=== PATIENT | male | born 1940 | race Caucasian/White ===

== ENCOUNTER 2016-12-27 20:23 | Inpatient (IN) ==
[2016-12-27] MEDS ORDERED: SALINE FLUSH 10ml SYRINGE IVF PRN (20:46)
--- OUTSIDE RECORDS SUMMARY | 2016-12-27 20:46 | External Medical Summary | Referral Summary ---
:1940 Author Organization [facility] Address [address] [place] [address] Care Team Providers Name Role Phone Arian Garcias Primary Care Physician Encounter VC Date(s): 01/26/15 - 01/26/15 [facility] [address] [place] [address] - us Discharge Diagnosis: Allergic rhinitis Discharge Diagnosis: Nasal septal deviation Discharge Diagnosis: Nocturnal hypoxemia Discharge Diagnosis: Bronchiectasis Discharge Disposition: 01-Home or Self Care Attending Physician: Dakota Meyer MD Vital Signs Most recent to oldest [Reference Range]: 1 Blood Pressure [90-140/60-90 mmHg] 132/74 mmHg (01/26/15 11:30 AM) Problem List Condition Effective Dates Status Health Status Informant Actinic keratosis(Confirmed) Active Allergy(Confirmed) Active Anemia (disorder)(Confirmed) Active Asthma without status asthmaticus Active (disorder)(Confirmed) Bronchiectasis(Confirmed) Active Cataract (disorder)(Confirmed) Active Community acquired pneumonia Active w/exacerb of COPD(Confirmed) Generalized osteoarthritis Active (disorder)(Confirmed) Depression(Confirmed) Active Diastolic dysfunction(Confirmed) Resolved Pedal edema(Confirmed) Active GI bleeding(Confirmed) Active GE reflux(Confirmed) Resolved Nocturnal hypoxemia(Confirmed) Active Hepatitis(Confirmed) Active Metabolic syndrome(Confirmed) Active Osteoarthritis(Confirmed) Active Overweight (finding)(Confirmed) Active Prostate cancer(Confirmed) Resolved Sleep apnea(Confirmed) Active Chicken pox(Confirmed) Active Allergies, Adverse Reactions, Alerts Substance Reaction Severity Status iodine Anaphylaxis Active nitrofurantoin dyspnea Active Medications Advair Diskus 250 mcg-50 mcg inhalation powder 1 puffs, Inhalation, BID, # 60 Each, 5 Refill(s), Pharmacy: [facility] [address] Start Date: 05/10/14 Status: Orderedalbuterol CFC free 90 mcg/inh inhalation aerosol 2 puffs, Inhalation, QID, 0 Refill(s) Start Date: 09/28/13 Status: OrderedAtrovent 42 mcg/inh nasal spray 2 sprays, Nasal, TID, # 2 Each, 12 Refill(s), Pharmacy: [facility] [address] Start Date: 02/24/14 Status: Orderedazithromycin 250 mg oral tablet See Instructions, TAKE ONE TABLET BY MOUTH ONCE DAILY, # 30 tabs, eRx: [facility] [address], TAKE ONE TABLET BY MOUTH ONCE DAILY Start Date: 01/15/15 Status: OrderedDuoNeb 0.5 mg-2.5 mg/3 mL inhalation solution 3 mL, Inhalation, QID, DX 519.8/494.0, # 360 mL, 2 Refill(s), Pharmacy: [facility] [address] Start Date: 12/07/13 Status: OrderedFlonase 50 mcg/inh nasal spray 1 sprays, Nasal, As Indicated, 0 Refill(s) Start Date: 09/28/13 Status: Orderedfurosemide 20 mg oral tablet See Instructions, TAKE ONE TABLET BY MOUTH MON.,WED. AND FRI., # 90 tabs, eRx: [facility] [address], TAKE ONE TABLET BY MOUTH MON.,THU. AND FRI. Start Date: 03/20/14 Status: OrderedHome Oxygen (DME) DME Item 3 LPM at bedtime (susan), See Instructions, # 1 Each, 0 Refill(s), Supply Start Date: 09/28/13 Status: OrderedLexapro 10 mg oral tablet 1 tabs, Oral, Daily, 0 Refill(s) Start Date: 09/28/13 Status: Orderedmagnesium oxide 250 mg oral tablet 1 tabs, Oral, Daily, 0 Refill(s) Start Date: 09/28/13 Status: OrderedMucinex 600 mg, Oral, q12hr, 0 Refill(s) Start Date: 09/28/13 Status: Orderedofloxacin 0.3% otic solution 5 drops, Ear-Both, BID, # 5 mL, 0 Refill(s) Start Date: 02/24/14 Status: Orderedomeprazole 20 mg oral delayed release capsule See Instructions, TAKE ONE CAPSULE BY MOUTH ONCE DAILY, # 90 caps, 2 Refill(s), eRx: [facility], TAKE ONE CAPSULE BY MOUTH ONCE DAILY Start Date: 11/08/14 Status: Orderedpotassium chloride 99 mg oral tablet 1 tabs, Oral, Daily, # 100 tabs, 0 Refill(s) Start Date: 09/28/13 Status: OrderedTylenol Extra Strength 500 mg, Oral, q6hr, 2 tabs once a day, 0 Refill(s) Start Date: 10/10/13 Status: OrderedVitamin D3 400 intl units oral tablet 1 tabs, Oral, Daily, 0 Refill(s) Start Date: 09/28/13 Status: Ordered Results No data available for this section Immunizations Vaccine Date Refusal Reason influenza virus vaccine, inactivated 03/07/15 influenza virus vaccine, inactivated 02/24/14 influenza virus vaccine, live 01/06/13 pneumococcal 23-polyvalent vaccine 03/07/15 tetanus-diphth toxoids (Td) adult/adol 10/19/08 Procedures Procedure Date Related Diagnosis Body Site Circumcision Colonoscopy Hernia repair Procedure/cardiac cath normal Procedure/lymph node Surgery/prostate Transfusions Social History Social History Type Response Smoking Status Former smoker; Type: Cigarettes; Tobacco use per day: Less than Pack; Number of years: 2 Assessment and Plan Extracted from: Title: Allergy Office Visit Note Author: Dakota Meyer MD Date: 01/26/15 Assessment/Plan 1.Allergic rhinitis Ordered: Office Visit Level 4 Est 89921 Return to Clinic 2.Bronchiectasis Controlled with significantly improved pulmonary function Ordered: azithromycin, See Instructions, Take one daily for bronchiectasis (prophylaxis ), # 30 tabs, 2 Refill(s), Pharmacy: [facility], Take one daily for bronchiectasis (prophylaxis) fluticasone-salmeterol, 1 puffs, Inhalation, BID, # 60 Each, 12 Refill(s), Pharmacy: [facility] Office Visit Level 4 Est 87626 Return to Clinic 3.Nocturnal hypoxemia Ordered: Office Visit Level 4 Est 97153 Return to Clinic 4.Nasal septal deviation Mild comes to the left Ordered: Office Visit Level 4 Est 54488 Return to Clinic Recommendations: Continue current medications(Advair discus, rescue inhalersand nasal sprays). Obtain annual influenza vaccinations. Continue prophylactic antibioticsand nocturnal oxygen supplementation; however theseshould be reassessed once he gets established with a new pulmonary medicine specialist(Dr. Arielle Rae followed him previously). He is travelling to [place] to visit his daughter and is forced to go without oxygen for 2 weeks because the [employer] was prohibitedfrom providingoxygen tanks or concen tratorsfor air travelon less than 3 weeks notice. It may be a good idea to reassess his need fornocturnal oxygen(if he does well)after this trip. Return to the allergy department in one year, sooner ifnecessary.
--- OUTSIDE RECORDS SUMMARY | 2016-12-27 20:46 | External Medical Summary | Referral Summary ---
:1940 Author Organization [facility] Address [address] [place] [address] Care Team Providers Name Role Phone Arian Garcias Primary Care Physician Encounter VC Date(s): 05/12/16 - 05/12/16 [facility] [address] [place] [address] - [place] Discharge Diagnosis: Breath shortness Discharge Disposition: 01-Home or Self Care Attending Physician: Dakota Meyer MD Admitting Physician: Dakota Meyer MD Vital Signs No data available for this section Problem List Condition Effective Dates Status Health [...] iodine Anaphylaxis Active nitrofurantoin dyspnea Active Medications albuterol CFC free 90 mcg/inh inhalation aerosol 2 puffs, Inhalation, QID, 0 Refill(s) Start Date: 09/28/13 Status: OrderedAtrovent 42 mcg/inh nasal spray 2 sprays, Nasal, TID, # 2 Each, 12 Refill(s), Pharmacy: [facility] [address] Start Date: 02/24/14 Status: Orderedazithromycin 250 mg oral tablet 250 mg 1 tabs, Oral, Daily, # 30 tabs, 11 Refill(s), Pharmacy: [facility] [address], 1 tabs Oral Daily Start Date: 03/04/16 Status: OrderedBreo Ellipta 200 mcg-25 mcg/inh inhalation powder 1 puffs, Inhalation, Daily, Sample X 1 given to patient. Instructed on use., # 1 Each, 11 Refill(s), Pharmacy: [facility] [address] Start Date: 03/04/16 Status: OrderedDuoNeb 0.5 mg-2.5 mg/3 mL inhalation solution 3 mL, Inhalation, QID, DX 519.8/494.0, # 360 mL, 2 Refill(s), Pharmacy: [facility] [address] Start Date: 12/07/13 Status: OrderedFlonase 50 mcg/inh nasal spray 1 sprays, Nasal, As Indicated, 0 Refill(s) Start Date: 09/28/13 Status: Orderedfurosemide 20 mg oral tablet See Instructions, take daily, # 90 tabs, eRx: [facility] [address], TAKE ONE TABLET BY MOUTH MON.,WED. AND FRI. Start Date: 03/20/14 Status: OrderedHome Oxygen (DME) DME Item 3 LPM at bedtime (susan), See Instructions, # 1 Each, 0 Refill(s), Supply Start Date: 09/28/13 Status: Orderedmagnesium oxide 250 [...] DAILY, # 90 caps, 2 Refill(s), eRx: [facility] [address], TAKE ONE CAPSULE BY MOUTH ONCE DAILY Start Date: 11/08/14 Status: OrderedPaxil 20 mg oral tablet 20 mg 1 tabs, Oral, Daily, # 30 tabs, 0 Refill(s) Start Date: 03/04/16 Status: Orderedpotassium chloride 99 mg oral tablet [...] No data available for this section Immunizations Given and Recorded Vaccine Date Status Refusal Reason influenza virus vaccine, inactivated 03/07/15 Given influenza virus vaccine, inactivated 02/24/14 Recorded influenza virus vaccine, live 01/06/13 Given pneumococcal 23-polyvalent vaccine 03/07/15 Given tetanus-diphth toxoids (Td) adult/adol 10/19/08 Given Procedures Procedure Date Related Diagnosis Body Site Colonoscopy 10/31/04 Circumcision Colonoscopy Hernia repair Procedure/cardiac cath normal Procedure/lymph node Surgery/prostate Transfusions Social History Social History Type Response Smoking Status Former smoker; Type: Cigarettes; Tobacco use per day: Less than Pack; Number of years: 2 Assessment and Plan No data available for this section
--- OUTSIDE RECORDS SUMMARY | 2016-12-27 20:46 | External Medical Summary | Referral Summary ---
:1940 Author Organization [facility] Address [address] [place] [address] Care Team Providers Name Role Phone Arian Garcias Primary Care Physician Encounter VC Date(s): 03/04/16 - 03/04/16 [facility] [address] [place] [address]- [place] Discharge Diagnosis: Nocturnal hypoxemia Discharge Diagnosis: Bronchiectasis Discharge Diagnosis: Dyspnea Discharge Disposition: 01-Home or Self Care Attending Physician: Carlito Valadez MD Admitting Physician: Carlito Valadez MD Vital Signs Most recent to oldest [Reference Range]: 1 Peripheral Pulse Rate [60-100 bpm] 82 bpm (03/04/16 10:24 AM) Respiratory Rate [14-20 br/min] 20 br/min (03/04/16 10:24 AM) Blood Pressure [90-140/60-90 mmHg] 122/72 mmHg (03/04/16 10:24 AM) SpO2 95 % (03/04/16 10:24 AM) Problem List Condition Effective Dates Status [...] BID, # 60 Each, 5 Refill(s), Pharmacy: [facility] [address] Start Date: 05/10/14 Status: Orderedalbuterol CFC free 90 mcg/inh inhalation aerosol 2 puffs, Inhalation, QID, 0 Refill(s) Start Date: 09/28/13 Status: OrderedAtrovent 42 mcg/inh nasal spray 2 sprays, Nasal, TID, # 2 Each, 12 Refill(s), Pharmacy: [facility] [address] Start Date: 02/24/14 Status: Orderedazithromycin 250 mg oral tablet 250 mg 1 tabs, Oral, Daily, # 30 tabs, 11 Refill(s), Pharmacy: [facility] [address], 1 tabs Oral Daily Start Date: 03/04/16 Status: OrderedBreo Ellipta 200 mcg-25 mcg/inh inhalation powder 1 puffs, Inhalation, Daily, Sample X 1 given to patient. Instructed on use., # 1 Each, 11 Refill(s), Pharmacy: [facility] [address] Start Date: 03/04/16 Status: OrderedDuoNeb 0.5 mg-2.5 mg/3 mL inhalation solution 3 mL, Inhalation, QID, DX 519.8/494.0, # 360 mL, 2 Refill(s), Pharmacy: [facility] [address] Start Date: 12/07/13 Status: OrderedFlonase 50 mcg/inh nasal spray 1 sprays, Nasal, As Indicated, 0 Refill(s) Start Date: 09/28/13 Status: Orderedfurosemide 20 mg oral tablet See Instructions, take daily, # 90 tabs, eRx: [facility] [address], TAKE ONE TABLET BY MOUTH MON.,WED. AND [...] DAILY, # 90 caps, 2 Refill(s), eRx: [facility], TAKE ONE CAPSULE BY MOUTH [...] 2 Assessment and Plan Extracted from: Title: Office Visit Note Author: Carlito Valadez MD Date: Assessment/Plan 1.Bronchiectasis No exacerbation of the past year Continue on his current medications including azithromycin We'll have the patient trial Breodaily instead of Advair Advised to use his flutter device twice daily If patient does not toleratemedication will switch back to [id number] twice a day 2.Nocturnal hypoxemia Continue to see liters of oxygen 3.Dyspnea Obstructive airway disease continue on hiscombination inhalers as prescribed above Follow-up in 12 months or earlier if needed
--- OUTSIDE RECORDS SUMMARY | 2016-12-27 20:46 | External Medical Summary | Referral Summary ---
:1940 Author Organization [facility] Address [address] [place] [address] Care Team Providers Name Role Phone Arian Garcias Primary Care Physician Encounter VC Date(s): 05/12/16 - 05/12/16 [facility] [address] [place] [address]- [place] Discharge Diagnosis: Shortness of breath Discharge Disposition: 01-Home or Self Care Attending Physician: Dakota Meyer MD Admitting Physician: Dakota Meyer MD Referring Physician: Dakota Meyer MD Vital Signs No [...] TID, # 2 Each, 12 Refill(s), Pharmacy: [facility] [address] Start Date: 02/24/14 Status: Orderedazithromycin 250 mg oral tablet 250 mg 1 tabs, Oral, Daily, # 30 tabs, 11 Refill(s), Pharmacy: [facility] [address], 1 tabs Oral Daily Start Date: 03/04/16 Status: OrderedBreo Ellipta 200 mcg-25 mcg/inh inhalation powder 1 puffs, Inhalation, Daily, Sample X 1 given to patient. Instructed on use., # 1 Each, 11 Refill(s), Pharmacy: [facility] [address] Start Date: 03/04/16 Status: OrderedDuoNeb 0.5 mg-2.5 mg/3 mL inhalation solution 3 mL, Inhalation, QID, DX 519.8/494.0, # 360 mL, 2 Refill(s), Pharmacy: [facility] [address] Start Date: 12/07/13 Status: OrderedFlonase 50 mcg/inh nasal spray 1 sprays, Nasal, As Indicated, 0 Refill(s) Start Date: 09/28/13 Status: Orderedfurosemide 20 mg oral tablet See Instructions, take daily, # 90 tabs, eRx: [facility] [address], TAKE ONE TABLET BY MOUTH MON.,WED. AND [...] DAILY, # 90 caps, 2 Refill(s), eRx: [facility] [address], TAKE ONE CAPSULE BY MOUTH ONCE DAILY [...]
--- OUTSIDE RECORDS SUMMARY | 2016-12-27 20:46 | External Medical Summary | Referral Summary ---
:1940 Author Organization [facility] Address [address] [place] [address] Care Team Providers Name Role Phone Arian Garcias Primary Care Physician Encounter VC Date(s): 05/12/16 - 05/12/16 [facility] [address] [place] [address] - [place] Discharge Diagnosis: Allergic rhinitis due to mold Discharge Diagnosis: Nocturnal hypoxemia Discharge Diagnosis: Bronchiectasis Discharge Diagnosis: Nasal septal deviation Discharge Disposition: 01-Home or Self Care Attending Physician: Dakota Meyer MD Admitting Physician: Dakota Meyer MD Vital Signs Most recent to oldest [Reference Range]: 1 Blood Pressure [90-140/60-90 mmHg] 122/80 mmHg (05/12/16 2:24 PM) Problem List Condition Effective Dates Status Health [...] TID, # 2 Each, 12 Refill(s), Pharmacy: [facility] [address] Start Date: 02/24/14 Status: Orderedazithromycin 250 mg oral tablet 250 mg 1 tabs, Oral, Daily, # 30 tabs, 11 Refill(s), Pharmacy: [facility] [address], 1 tabs Oral Daily Start Date: 03/04/16 Status: OrderedBreo Ellipta 200 mcg-25 mcg/inh inhalation powder 1 puffs, Inhalation, Daily, Sample X 1 given to patient. Instructed on use., # 1 Each, 11 Refill(s), Pharmacy: [facility] [address] Start Date: 03/04/16 Status: OrderedDuoNeb 0.5 mg-2.5 mg/3 mL inhalation solution 3 mL, Inhalation, QID, DX 519.8/494.0, # 360 mL, 2 Refill(s), Pharmacy: [facility] [address] Start Date: 12/07/13 Status: OrderedFlonase 50 mcg/inh nasal spray 1 sprays, Nasal, As Indicated, 0 Refill(s) Start Date: 09/28/13 Status: Orderedfurosemide 20 mg oral tablet See Instructions, take daily, # 90 tabs, eRx: [facility] [address], TAKE ONE TABLET BY MOUTH MON.,WED. AND [...] DAILY, # 90 caps, 2 Refill(s), eRx: [facility], TAKE ONE CAPSULE BY MOUTH ONCE DAILY [...] Extracted from: Title: Office Visit Note Author: Dakota Meyer MD Date: 05/12/16 Assessment/Plan 1.Allergic rhinitis due to mold Controlled (less exposure to mold in the wintertime) Ordered: Office Visit Level 4 Est 25925 Return to Clinic 2.Bronchiectasis Normal spirometry. Symptoms are clinically stable. Ordered: Office Visit Level 4 Est 57261 Return to Clinic 3.Nasal septal deviation Ordered: Office Visit Level 4 Est 86537 Return to Clinic 4.Nocturnal hypoxemia Evaluation of the additional complaint of dyspnea on exertionresulted in a 6 minute walk test. This wasnegative for significant desaturation(see scanned report in the medical record) Ordered: Office Visit Level 4 Est 25855 Return to Clinic Recommendations: Continue Breo Ellipta as recommended. Continue current"rescue medications" (albuterol and DuoNeb for nebulizer). Attempt to obtain these supplies through a home health agency. Schedule a visit in one year, sooner if needed
--- OUTSIDE RECORDS SUMMARY | 2016-12-27 20:46 | External Medical Summary | Referral Summary ---
:1940 Author Organization [facility] Address [address] [place] [address] Care Team Providers Name Role Phone Arian Garcias Primary Care Physician Encounter VC Date(s): 01/26/15 - 01/26/15 [facility] [address] [place] [address] - [place] Discharge Diagnosis: Shortness of breath Discharge [...] mcg inhalation powder 1 puffs, Inhalation, BID, 0 Refill(s) Start Date: 09/28/13 Status: OrderedAdvair Diskus 250 mcg-50 mcg inhalation powder 1 puffs, Inhalation, BID, # 60 Each, 12 Refill(s), Pharmacy: [facility] [address] Start Date: 01/26/15 Status: OrderedAdvair Diskus 250 mcg-50 mcg inhalation powder 1 puffs, Inhalation, BID, # 60 Each, 5 Refill(s), Pharmacy: [facility] [address] Start Date: 05/10/14 Status: Orderedalbuterol CFC free 90 mcg/inh inhalation aerosol 2 puffs, Inhalation, QID, 0 Refill(s) Start Date: 09/28/13 Status: OrderedAtrovent 42 mcg/inh nasal spray 2 sprays, Nasal, TID, # 2 Each, 12 Refill(s), Pharmacy: [facility] [address] Start Date: 02/24/14 Status: OrderedAtrovent 42 mcg/inh nasal spray 2 sprays, Nasal, TID, # 1 bottles, 12 Refill(s), Pharmacy: [facility] [address] Start Date: 07/27/14 Status: Orderedazithromycin 250 mg oral tablet See Instructions, TAKE ONE TABLET BY MOUTH ONCE DAILY, # 30 tabs, eRx: [facility] [place] [address], TAKE ONE TABLET BY MOUTH ONCE DAILY Start Date: 01/15/15 Status: Orderedazithromycin 250 mg oral tablet See Instructions, Take one daily for bronchiectasis (prophylaxis), # 30 tabs, 2 Refill(s), Pharmacy:[facility] [address], Take one daily for bronchiectasis ( prophylaxis) Start Date: 01/26/15 Status: Ordereddiclofenac Oral, 0 Refill(s) Start Date: 02/24/14 Status: OrderedDuoNeb 0.5 mg-2.5 mg/3 mL inhalation solution 3 mL, Inhalation, QID, DX 519.8/494.0, # 360 mL, 2 Refill(s), Pharmacy: [facility] [address] Start Date: 12/07/13 Status: OrderedFlonase 50 mcg/inh nasal spray 1 sprays, Nasal, As Indicated, 0 Refill(s) Start Date: 09/28/13 Status: Orderedfurosemide 20 mg oral tablet See Instructions, TAKE ONE TABLET BY MOUTH MON.,WED. AND FRI., # 90 tabs, eRx: [facility] [address], TAKE ONE TABLET BY MOUTH MON.,WED. AND THU. Start Date: 03/20/14 Status: OrderedHome Oxygen (DME) [...] DAILY, # 90 caps, 2 Refill(s), eRx: [facility], TAKE ONE CAPSULE BY MOUTH [...] Date Refusal Reason influenza virus vaccine, inactivated 02/24/14 influenza virus vaccine, live 01/06/13 tetanus-diphth toxoids (Td) adult/adol 10/19/08 Procedures Procedure Date Related Diagnosis Body Site Circumcision Colonoscopy Hernia repair Procedure/cardiac cath normal Procedure/lymph node Surgery/prostate Transfusions Social History Social History Type Response Smoking Status Former smoker; Type: Cigarettes; Tobacco use per day: Less than Pack; Number of years: 2 Assessment and Plan No data available for this section
--- OUTSIDE RECORDS SUMMARY | 2016-12-27 20:46 | External Medical Summary | Referral Summary ---
:1940 Author Organization [facility] Address [address] [place] [address] Care Team Providers Name Role Phone Arian Garcias Primary Care Physician Encounter VC Date(s): 01/26/15 - 01/26/15 [facility] [address] [place] [address] - [place] Discharge Diagnosis: Allergic [...] BID, # 60 Each, 12 Refill(s), Pharmacy: [facility] [address] Start Date: 01/26/15 Status: OrderedAdvair Diskus 250 mcg-50 mcg inhalation powder 1 puffs, Inhalation, BID, # 60 Each, 5 Refill(s), Pharmacy: [facility] [address] Start Date: 05/10/14 Status: Orderedalbuterol CFC free 90 mcg/inh inhalation aerosol 2 puffs, Inhalation, QID, 0 Refill(s) Start Date: 09/28/13 Status: OrderedAtrovent 42 mcg/inh nasal spray 2 sprays, Nasal, TID, # 2 Each, 12 Refill(s), Pharmacy: [facility] [address] Start Date: 02/24/14 Status: OrderedAtrovent 42 mcg/inh nasal spray 2 sprays, Nasal, TID, # 1 bottles, 12 Refill(s), Pharmacy: [facility] [address] Start Date: 07/27/14 Status: Orderedazithromycin 250 mg oral tablet See Instructions, TAKE ONE TABLET BY MOUTH ONCE DAILY, # 30 tabs, eRx: [facility] [place] [address], TAKE ONE TABLET BY MOUTH ONCE DAILY Start Date: 01/15/15 Status: Orderedazithromycin 250 mg oral tablet See Instructions, Take one daily for bronchiectasis (prophylaxis), # 30 tabs, 2 Refill(s), Pharmacy:[facility] [address], Take one daily for bronchiectasis ( prophylaxis) Start Date: 01/26/15 Status: Ordereddiclofenac Oral, 0 Refill(s) Start Date: 02/24/14 Status: OrderedDuoNeb 0.5 mg-2.5 mg/3 mL inhalation solution 3 mL, Inhalation, QID, DX 519.8/494.0, # 360 mL, 2 Refill(s), Pharmacy: [facility] [address] Start Date: 12/07/13 Status: OrderedFlonase 50 mcg/inh nasal spray 1 sprays, Nasal, As Indicated, 0 Refill(s) Start Date: 09/28/13 Status: Orderedfurosemide 20 mg oral tablet See Instructions, TAKE ONE TABLET BY MOUTH MON.,WED. AND FRI., # 90 tabs, eRx: [facility], TAKE ONE TABLET BY MOUTH MON.,WED. AND [...] DAILY, # 90 caps, 2 Refill(s), eRx: [facility], TAKE ONE CAPSULE BY MOUTH [...] rhinitis Ordered: Office Visit Level 4 Est 71417 Return to Clinic 2.Bronchiectasis Controlled with significantly improved pulmonary function Ordered: azithromycin, See Instructions, Take one daily for bronchiectasis (prophylaxis ), # 30 tabs, 2 Refill(s), Pharmacy: [facility], Take one daily for bronchiectasis (prophylaxis) fluticasone-salmeterol, 1 puffs, Inhalation, BID, # 60 Each, 12 Refill(s), Pharmacy: [facility] Office Visit Level 4 Est 27717 Return to Clinic 3.Nocturnal hypoxemia Ordered: Office Visit Level 4 Est 02810 Return to Clinic 4.Nasal septal deviation Mild comes to the left Ordered: Office Visit Level 4 Est 37813 Return to Clinic Recommendations: Continue current medications(Advair discus, rescue inhalersand nasal sprays). Obtain annual influenza vaccinations. Continue prophylactic antibioticsand nocturnal oxygen supplementation; however theseshould be reassessed once he gets established with a new pulmonary medicine specialist(Dr. Arielle Rae followed him previously). He is travelling to [place] to visit his daughter and is forced to go without oxygen for 2 weeks because the [employer] was prohibitedfrom providingoxygen tanks or concen tratorsfor air travelon less than 3 weeks notice. It may be a good idea to reassess his need fornocturnal oxygen(if he does well)after this trip. Return to the allergy department in one year, sooner ifnecessary.
--- OUTSIDE RECORDS SUMMARY | 2016-12-27 20:46 | External Medical Summary | Referral Summary ---
:1940 Author Organization [facility] Address [address] [place] [address] Care Team Providers Name Role Phone Arian Garcias Primary Care Physician Encounter VC Date(s): 03/07/15 - 03/07/15 [facility] [address] [place] [address]- [place] Discharge Diagnosis: Bronchiectasis Discharge Diagnosis: Sleep related hypoxia Discharge Diagnosis: Need for pneumococcal vaccine Discharge Disposition: 01-Home or Self Care Attending Physician: Carlito Valadez MD Admitting Physician: Carlito Valadez MD Vital Signs Most recent to oldest [Reference Range]: 1 Peripheral Pulse Rate [60-100 bpm] 72 bpm (03/07/15 8:10 AM) Respiratory Rate [14-20 br/min] 14 br/min (03/07/15 8:10 AM) Blood Pressure [90-140/60-90 mmHg] 124/70 mmHg (03/07/15 8:10 AM) SpO2 95 % (03/07/15 8:10 AM) Problem List Condition Effective Dates Status [...] BID, # 60 Each, 5 Refill(s), Pharmacy: [place] [id number] Start Date: 05/10/14 Status: Orderedalbuterol CFC free 90 mcg/inh inhalation aerosol 2 puffs, Inhalation, QID, 0 Refill(s) Start Date: 09/28/13 Status: OrderedAtrovent 42 mcg/inh nasal spray 2 sprays, Nasal, TID, # 2 Each, 12 Refill(s), Pharmacy: [facility] [address] Start Date: 02/24/14 Status: Orderedazithromycin 250 mg oral tablet See Instructions, TAKE ONE TABLET BY MOUTH ONCE DAILY, # 30 tabs, eRx: [facility] [address], TAKE ONE TABLET BY MOUTH ONCE DAILY Start Date: 01/15/15 Status: OrderedDuoNeb 0.5 mg-2.5 mg/3 mL inhalation solution 3 mL, Inhalation, QID, DX 519.8/494.0, # 360 mL, 2 Refill(s), Pharmacy: [place] [address] Start Date: 12/07/13 Status: OrderedFlonase 50 mcg/inh nasal spray 1 sprays, Nasal, As Indicated, 0 Refill(s) Start Date: 09/28/13 Status: Orderedfurosemide 20 mg oral tablet See Instructions, TAKE ONE TABLET BY MOUTH MON.,WED. AND FRI., # 90 tabs, eRx: [place] [address], TAKE ONE TABLET BY MOUTH MON.,WED. AND [...] DAILY, # 90 caps, 2 Refill(s), eRx: [facility], TAKE ONE CAPSULE BY [...] Refill(s) Start Date: 09/28/13 Status: Ordered Results Hematology Most recent to oldest [Reference Range]: 1 WBC [4.8-10.8 10*3/uL] 8.4 10*3/uL (03/07/15 9:26 AM) RBC [4.60-6.20] 5.01 (03/07/15 9:26 AM) Hgb [14.0-18.0 gm/dL] 16.1 gm/dL (03/07/15 9:26 AM) Hct [42.0-52.0 %] 47.3 % (03/07/15 9:26 AM) MCV [82.0-99.0 fL] 94.4 fL (03/07/15 9:26 AM) MCH [27.0-32.0 pg] 32.1 pg *HI* (03/07/15 9:26 AM) MCHC [32.0-36.0 gm/dL] 34.0 gm/dL (03/07/15 9:26 AM) RDW [11.5-14.5 %] 13.5 % (03/07/15 9:26 AM) Platelet [150-400 10*3/uL] 214 10*3/uL (03/07/15 9:26 AM) MPV [8.8-14.8 fL] 11.1 fL (03/07/15 9:26 AM) Immature Granulocytes [0.0-1.0 %] 0.2 % (03/07/15 9:26 AM) Neutrophils [51-75 %] 57 % (03/07/15 9:26 AM) Lymphocytes [20-46 %] 28 % (03/07/15 9:26 AM) Monocytes [4-11 %] 11 % (03/07/15 9:26 AM) Eosinophils [0-4 %] 3 % (03/07/15 9:26 AM) Basophils [0-2 %] 1 % (03/07/15 9:26 AM) Neutro Absolute [1.90-7.00 10*3] 4.74 10*3 (03/07/15 9:26 AM) Lymph Absolute [0.80-3.30 10*3] 2.38 10*3 (03/07/15 9:26 AM) [place] Absolute [0.30-1.00 10*3] 0.92 10*3 (03/07/15 9:26 AM) Eos Absolute [0.00-0.50 10*3] 0.23 10*3 (03/07/15 9:26 AM) Baso Absolute [0.00-0.20 10*3] 0.11 10*3 (03/07/15 9:26 AM) Immunizations Vaccine Date Refusal Reason influenza virus [...] 2 Assessment and Plan Extracted from: Title: Ambulatory Patient Author: Carlito Valadez Date: 03/07/15 Education MD Family Medicine Bronchiectasis Bronchiectasis is a condition in which the airways (bronchi) are damaged and widened. This makes it difficult for the lungs to get rid of mucus. As a result , mucus gathers in the airways, and this often leads to lung infections. Infection can cause inflammation in the airways, which may further weaken and damage the bronchi. CAUSES Bronchiectasis may be present at (congenital) or may develop later in life. Sometimes there is no apparent cause. Some common causes include: Cystic fibrosis. Recurrent lung infections (such as pneumonia, tuberculosis, or fungal infections). Foreign bodies or other blockages in the lungs. Breathing in fluid, food, or other foreign objects (aspiration). SIGNS AND SYMPTOMS Common symptoms include: A daily cough that brings up mucus and lasts for more than 3 weeks. Frequent lung infections (such as pneumonia, tuberculosis, or fungal infections). Shortness of breath and wheezing. Weakness and fatigue. DIAGNOSIS Various tests may be done to help diagnose bronchiectasis. Tests may include: Chest X-rays or CT scans. Breathing tests to help determine how your lungs are working. Sputum cultures to check for infection. Blood tests and other tests to check for related diseases or causes, such as cystic fibrosis. TREATMENT Treatment varies depending on the severity of the condition. Medicines may be given to loosen the mucus to be coughed up (expectorants), to relax the muscles of the air passages (bronchodilators), or to prevent or treat infections (antibiotics). Physical therapy methods may be recommended to help clear mucus from the lungs. For severe cases, surgery may be done to remove the affected part of the lung. HOME CARE INSTRUCTIONS Get plenty of rest. Only take sstw-epv-[id number] or prescription medicines as directed by your health care provider. If antibiotic medicines were prescribed, take them as directed. Finish them even if you start to feel better. Avoid sedatives and antihistamines unless otherwise directed by your health care provider. These medicines tend to thicken the mucus in the lungs. Perform any breathing exercises or techniques to clear the lungs as directed by your health care provider. Drink enough fluids to keep your urine clear or pale yellow. Consider using a cold steam vaporizer or humidifier in your room or home to help loosen secretions. If the cough is worse at night, try sleeping in a semi-upright position in a recliner or using a couple of pillows. Avoid cigarette smoke and lung irritants. If you smoke, quit. Stay inside when pollution and ozone levels are high. Stay current with vaccinations and immunizations. Follow up with your health care provider as directed. SEEK MEDICAL CARE IF: You cough up more thick, discolored mucus (sputum) that is yellow to green in color. You have a fever or persistent symptoms for more than 23 days. You cannot control your cough and are losing sleep. SEEK IMMEDIATE MEDICAL CARE IF: You cough up blood. You have chest pain or increasing shortness of breath. You have pain that is getting worse or is uncontrolled with medicines. You have a fever and your symptoms suddenly get worse. MAKE SURE YOU: Understand these instructions. Will watch your condition. Will get help right away if you are not doing well or get worse. Document Released: 02/01/2008 Document Revised: 04/11/2014 Document Reviewed: 10/12/2013 [employer] Patient Information 2015 [employer]. This information is not intended to replace advice given to you by your health care provider. Make sure you discuss any questions you have with your health care provider. No follow up information was provided. Extracted from: Title: Office Visit Note Author: Carlito Valadez MD Date: Assessment/Plan 1.Bronchiectasis Patient is doing extremely well on azithromycin 250 mg daily and Advair 250/50 twice daily. We'll continue on current medications including azithromycin for life to reduce bronchiectasis exacerbation brisk. Checkrest walk to determine if patient has exercise hypoxemia Follow-up in one year 2.Sleep related hypoxia We'll obtain a nocturnal pulse ox study on room air We'll also check a CBC
--- OUTSIDE RECORDS SUMMARY | 2016-12-27 20:46 | External Medical Summary | Referral Summary ---
:1940 Author Organization [facility] Address [address] [place] [address] Care Team Providers Name Role Phone Arian Garcias Primary Care Physician Encounter VC Date(s): 01/26/15 - 01/26/15 [facility] [address] [place] [address] - [place] Discharge Diagnosis: Allergic [...] BID, # 60 Each, 12 Refill(s), Pharmacy: [place] [id number] Start Date: 01/26/15 Status: OrderedAdvair Diskus 250 mcg-50 mcg inhalation powder 1 puffs, Inhalation, BID, # 60 Each, 5 Refill(s), Pharmacy: [place] [facility] [address] Start Date: 05/10/14 Status: Orderedalbuterol CFC free 90 mcg/inh inhalation aerosol 2 puffs, Inhalation, QID, 0 Refill(s) Start Date: 09/28/13 Status: OrderedAtrovent 42 mcg/inh nasal spray 2 sprays, Nasal, TID, # 2 Each, 12 Refill(s), Pharmacy: [facility] [address] Start Date: 02/24/14 Status: OrderedAtrovent 42 mcg/inh nasal spray 2 sprays, Nasal, TID, # 1 bottles, 12 Refill(s), Pharmacy: [facility] [address] Start Date: 07/27/14 Status: Orderedazithromycin 250 mg oral tablet See Instructions, TAKE ONE TABLET BY MOUTH ONCE DAILY, # 30 tabs, eRx: [place] [address], TAKE ONE TABLET BY MOUTH ONCE DAILY Start Date: 01/15/15 Status: Orderedazithromycin 250 mg oral tablet See Instructions, Take one daily for bronchiectasis (prophylaxis), # 30 tabs, 2 Refill(s), Pharmacy:[place] [address], Take one daily for bronchiectasis ( prophylaxis) Start Date: 01/26/15 Status: Ordereddiclofenac Oral, 0 Refill(s) Start Date: 02/24/14 Status: OrderedDuoNeb 0.5 mg-2.5 mg/3 mL inhalation solution 3 mL, Inhalation, QID, DX 519.8/494.0, # 360 mL, 2 Refill(s), Pharmacy: [place] [id number] Start Date: 12/07/13 Status: OrderedFlonase 50 mcg/inh nasal spray 1 sprays, Nasal, As Indicated, 0 Refill(s) Start Date: 09/28/13 Status: Orderedfurosemide 20 mg oral tablet See Instructions, TAKE ONE TABLET BY MOUTH MON.,WED. AND FRI., # 90 tabs, eRx: [facility], TAKE ONE TABLET BY MOUTH [...] DAILY, # 90 caps, 2 Refill(s), eRx: [facility], TAKE ONE CAPSULE BY MOUTH [...] rhinitis Ordered: Office Visit Level 4 Est 65216 Return to Clinic 2.Bronchiectasis Controlled with significantly improved pulmonary function Ordered: azithromycin, See Instructions, Take one daily for bronchiectasis (prophylaxis ), # 30 tabs, 2 Refill(s), Pharmacy: [facility], Take one daily for bronchiectasis (prophylaxis) fluticasone-salmeterol, 1 puffs, Inhalation, BID, # 60 Each, 12 Refill(s), Pharmacy: [facility] Office Visit Level 4 Est 15623 Return to Clinic 3.Nocturnal hypoxemia Ordered: Office Visit Level 4 Est 97795 Return to Clinic 4.Nasal septal deviation Mild comes to the left Ordered: Office Visit Level 4 Est 65505 Return to Clinic Recommendations: Continue current medications(Advair discus, rescue inhalersand nasal sprays). Obtain annual influenza vaccinations. Continue prophylactic antibioticsand nocturnal oxygen supplementation; however theseshould be reassessed once he gets established with a new pulmonary medicine specialist(Dr. Arielle Rae followed him previously). He is travelling to [place] to visit his daughter and is forced to go without oxygen for 2 weeks because the [employer] was prohibitedfrom providingoxygen tanks or concen tratorsfor air travelon less than 3 weeks notice. It may be a good idea to reassess his need fornocturnal oxygen(if he does well)after this trip. Return to the allergy department in one year, sooner ifnecessary.
--- OUTSIDE RECORDS SUMMARY | 2016-12-27 20:46 | External Medical Summary | Referral Summary ---
:1940 Author Organization [facility] Address [address] [place] [address] Care Team Providers Name Role Phone Arian Garcias Primary Care Physician Encounter VC Date(s): 01/26/15 - 01/26/15 [facility] [address] [place] [address] - [place] Discharge Diagnosis: Shortness [...] BID, # 60 Each, 5 Refill(s), Pharmacy: [facility] Start Date: 05/10/14 Status: Orderedalbuterol CFC free 90 mcg/inh inhalation aerosol 2 puffs, Inhalation, QID, 0 Refill(s) Start Date: 09/28/13 Status: OrderedAtrovent 42 mcg/inh nasal spray 2 sprays, Nasal, TID, # 2 Each, 12 Refill(s), Pharmacy: [facility] [address] Start Date: 02/24/14 Status: Orderedazithromycin 250 mg oral tablet See Instructions, TAKE ONE TABLET BY MOUTH ONCE DAILY, # 30 tabs, eRx: [place] [address], TAKE ONE TABLET BY MOUTH ONCE DAILY Start Date: 01/15/15 Status: OrderedDuoNeb 0.5 mg-2.5 mg/3 mL inhalation solution 3 mL, Inhalation, QID, DX 519.8/494.0, # 360 mL, 2 Refill(s), Pharmacy: [place] [address] Start Date: 12/07/13 Status: OrderedFlonase 50 mcg/inh nasal spray 1 sprays, Nasal, As Indicated, 0 Refill(s) Start Date: 09/28/13 Status: Orderedfurosemide 20 mg oral tablet See Instructions, TAKE ONE TABLET BY MOUTH MON.,WED. AND FRI., # 90 tabs, eRx: [place] [address], TAKE ONE TABLET BY MOUTH MON.,WED. AND [...] DAILY, # 90 caps, 2 Refill(s), eRx: [facility] [address], TAKE ONE CAPSULE BY MOUTH ONCE DAILY [...]
--- OUTSIDE RECORDS SUMMARY | 2016-12-27 20:46 | External Medical Summary | Referral Summary ---
:1940 Author Organization [facility] Address [address] [place] [address] Care Team Providers Name Role Phone Arian Garcias Primary Care Physician Encounter VC Date(s): 01/26/15 - 01/26/15 [facility] [address] [place] [address] - [place] Discharge Diagnosis: Allergic [...] BID, # 60 Each, 12 Refill(s), Pharmacy: [place] [address] Start Date: 01/26/15 Status: OrderedAdvair Diskus 250 mcg-50 mcg inhalation powder 1 puffs, Inhalation, BID, # 60 Each, 5 Refill(s), Pharmacy: [facility] [place] [address] Start Date: 05/10/14 Status: Orderedalbuterol CFC free 90 mcg/inh inhalation aerosol 2 puffs, Inhalation, QID, 0 Refill(s) Start Date: 09/28/13 Status: OrderedAtrovent 42 mcg/inh nasal spray 2 sprays, Nasal, TID, # 2 Each, 12 Refill(s), Pharmacy: [place] [address] Start Date: 02/24/14 Status: OrderedAtrovent 42 mcg/inh nasal spray 2 sprays, Nasal, TID, # 1 bottles, 12 Refill(s), Pharmacy: [place] [address] Start Date: 07/27/14 Status: Orderedazithromycin 250 mg oral tablet See Instructions, TAKE ONE TABLET BY MOUTH ONCE DAILY, # 30 tabs, eRx: [place] [address], TAKE ONE TABLET BY MOUTH ONCE DAILY Start Date: 01/15/15 Status: Orderedazithromycin 250 mg oral tablet See Instructions, Take one daily for bronchiectasis (prophylaxis), # 30 tabs, 2 Refill(s), Pharmacy:[place] [address], Take one daily for bronchiectasis ( prophylaxis) Start Date: 01/26/15 Status: Ordereddiclofenac Oral, 0 Refill(s) Start Date: 02/24/14 Status: OrderedDuoNeb 0.5 mg-2.5 mg/3 mL inhalation solution 3 mL, Inhalation, QID, DX 519.8/494.0, # 360 mL, 2 Refill(s), Pharmacy: [place] [address] Start Date: 12/07/13 Status: OrderedFlonase 50 mcg/inh nasal spray 1 sprays, Nasal, As Indicated, 0 Refill(s) Start Date: 09/28/13 Status: Orderedfurosemide 20 mg oral tablet See Instructions, TAKE ONE TABLET BY MOUTH MON.,WED. AND FRI., # 90 tabs, eRx: [facility], TAKE ONE TABLET BY MOUTH [...] DAILY, # 90 caps, 2 Refill(s), eRx: [email or web address], TAKE ONE CAPSULE BY MOUTH [...]
--- OUTSIDE RECORDS SUMMARY | 2016-12-27 20:47 | External Medical Summary | Referral Summary ---
:1940 Author Organization [facility] Address [address] [place] [address] Care Team Providers Name Role Phone Arian Garcias Primary Care Physician Encounter VC Date(s): 03/12/15 - 03/12/15 [facility] [address] [place] [address]- [phone] Discharge Disposition: 01-Home or Self Care Attending Physician: Carlito Valadez MD Admitting Physician: Carlito Valadez MD Referring Physician: Carlito Valadez MD Vital Signs No data available for [...] BID, # 60 Each, 5 Refill(s), Pharmacy: [facility] Start Date: 05/10/14 Status: Orderedalbuterol CFC free 90 mcg/inh inhalation aerosol 2 puffs, Inhalation, QID, 0 Refill(s) Start Date: 09/28/13 Status: OrderedAtrovent 42 mcg/inh nasal spray 2 sprays, Nasal, TID, # 2 Each, 12 Refill(s), Pharmacy: [place] [address] Start Date: 02/24/14 Status: Orderedazithromycin 250 mg oral tablet See Instructions, TAKE ONE TABLET BY MOUTH ONCE DAILY, # 30 tabs, eRx: [facility], TAKE ONE TABLET BY MOUTH ONCE DAILY Start Date: 01/15/15 Status: OrderedDuoNeb 0.5 mg-2.5 mg/3 mL inhalation solution 3 mL, Inhalation, QID, DX 519.8/494.0, # 360 mL, 2 Refill(s), Pharmacy: [place] [address] Start Date: 12/07/13 Status: OrderedFlonase 50 mcg/inh nasal spray 1 sprays, Nasal, As Indicated, 0 Refill(s) Start Date: 09/28/13 Status: Orderedfurosemide 20 mg oral tablet See Instructions, TAKE ONE TABLET BY MOUTH MON.,WED. AND FRI., # 90 tabs, eRx: [facility], TAKE ONE TABLET BY MOUTH MON.,THU. AND THU. Start Date: 03/20/14 Status: OrderedHome [...] DAILY, # 90 caps, 2 Refill(s), eRx: [facility], TAKE ONE CAPSULE BY [...]
--- NOTE | 2016-12-27 21:18 | Emergency Department Report ---
General Adult HPI - General Chief complaint: Weakness Stated complaint: Left knee heavy Source: patient, family Mode of arrival: ambulatory Limitations: no limitations - History of Present Illness HPI narrative: 76-year-old male presents to the emergency department with a chief complaint of left lower extremity heaviness. Patient noted onset of symptoms this morning at approximately 0600 today when he got up to go to the bathroom. Patient denies any pain or discomfort. Patient notes that he has to focus in order to make his left lower extremity work as it is supposed to. Patient is able to ambulate with his cane without difficulty. Patient was at home when his symptoms began. Symptoms have been persistent in nature since onset. Patient denies any other complaints or associated symptoms. He does not note any exacerbating or remitting factors. - Related Data Home Medications Medication Instructions Recorded Confirmed Magnesium 250 mg PO DAILY #0 05/10/08 12/27/16 Ergocalciferol (Vitamin D2) 400 unit PO DAILY #0 tab 09/11/13 12/27/16 [Vitamin D] Furosemide [Lasix] 20 mg PO DAILY #0 tab 09/11/13 12/27/16 Acetaminophen [Tylenol Extra 1,000 mg PO DAILY #0 tab 03/20/15 12/27/16 Strength] Ascorbic Acid [Vitamin C] 500 mg PO DAILY #0 tab 05/28/16 12/27/16 Aspirin [Aspir 81] 81 mg PO DAILY #0 tab 05/28/16 12/27/16 Azithromycin 250 tab PO DAILY #0 05/28/16 12/27/16 Fluticasone Propionate [Flonase 1 spray EA NOSTRIL BID PRN #0 05/28/16 12/27/16 Allergy Relief] Fluticasone/Vilanterol [Breo 1 dose INH DAILY #0 05/28/16 12/27/16 Ellipta 200-25 Mcg Inhaler] Ipratropium/Albuterol Sulfate 2 puff PO 2-4XD PRN #0 inhaler 05/28/16 12/27/16 [Combivent Respimat Inhal [place]] Omeprazole 20 mg PO DAILY #0 05/28/16 12/27/16 PARoxetine HCl [Paroxetine HCl] 20 mg PO DAILY #0 05/28/16 12/27/16 buPROPion HCl [Bupropion Xl] 150 mg PO DAILY #0 05/28/16 12/27/16 guaiFENesin [Mucinex] 600 mg PO DAILY #0 05/28/16 12/27/16 Potassium 250 mg PO DAILY 12/27/16 12/27/16 Allergies Allergy/AdvReac Type Severity Reaction Status Date / Time nitrofurantoin AdvReac Mild NAUSEA Verified 12/27/16 20:51 IODINE DYE Allergy Severe Anaphylactic Uncoded 12/27/16 20:51 Shock BEE STING Allergy Unknown Uncoded 12/27/16 20:51 Review of Systems Constitutional: Denies: fever, chills Eyes: Denies: eye pain, vision change ENT: Denies: ear pain, throat pain Cardiovascular: Denies: chest pain, palpitations Respiratory: Denies: cough, dyspnea Gastrointestinal: Denies: abdominal pain, nausea, vomiting, diarrhea Genitourinary: Denies: urgency, dysuria Musculoskeletal: Denies: back pain, arthralgia Integumentary: Denies: erythema, rash Neurological: Reports: weakness (left lower extremity). Denies: headache, numbness, paresthesias Psychiatric: Denies: anxiety, depression Endocrine: Denies: fatigue, heat or cold intolerance Hematological/Lymphatic: Denies: easy bleeding, easy bruising Allergic/Immunologic: Denies: facial swelling, urticaria PFSH Patient Stated Medical History Other Respiratory Yes: bronchiectasis-lower left lobe Gastroesophageal Reflux Yes Disease Anemia Yes Clinic Medical History (Last Reviewed 12/03/16 @ 15:35 by LM Justice ) Anemia (Acute Medical) Hepatitis C (Acute Medical) Bronchiectasis (Resolved Medical) GERD (gastroesophageal reflux disease) (Resolved Medical) GERD (gastroesophageal reflux disease) (Inactive Medical) Surgical History: 1962 lymph node biopsy of left shoulder/neck. 1998 hernia repair with mesh. 1998 radical prostatectomy (prostate cancer). 2007 hiatal hernia repair and repair of upside down stomach. 2013 bilateral cataracts and bags from upper and lower eyes removed Family History: Family History (Last Reviewed 12/03/16 @ 15:35 by LM Justice) Mother Brain cancer Kidney cancer, primary, with metastasis from kidney to other site Father Hypertension Congestive heart failure - Social History Smoking status: Never smoker Substance use type: does not use Alcohol intake frequency: does not drink Physical Exam - Limitations Limitations: no limitations - General General appearance: alert, in no apparent distress - Normal Exams: Head:: Normocephalic without trauma Eyes:: Pupils are PERRLA w/ EOMI, No scleral icterus, irritation, or foreign bodies noted ENMT:: No facial trauma, nasal exudates, pharyngeal erythema, or exudates are noted Dental: No fractured, loose, or missing teeth noted Neck:: Full range of motion, without adenopathy, JVD, bruits or thyromegaly Chest/Respirations:: Clear all sanchez, with good airflow, and symmetry bilaterally Cardiovascular:: Regular rate and rhythm, without murmur or gallop, Pulses 2+ all extremities, capillary refill, <2 seconds all extremities Abdomen:: Bowel sounds positive, soft, non-tender, non-distended, no hepatosplenomegaly, masses or bruits noted Lymphatic:: No lymphadenopathy, or lymphedema noted Musculoskeletal:: No tenderness, or deformity noted, good range of motion, all extremities Integumentary:: No rashes, hives, or bruising noted, hair and nails, without abnormality Neurological:: Patient is alert (Alert and oriented x 4. CN 2-12 intact. Small sensation. Normal motor. Normal coordination. Normal speech. Strength normal except for slight perceptible for 4+/5 left lower extremity weakness. Absent Babinski. Gait normal with cane. Reflexes 2/4 in all extremities. ) Psychiatric:: Patient exhibits, appropriate attention, emotion and affect Course Vital Signs Temperature 97.8 F 12/27/16 20:23 Pulse Rate 91 12/27/16 20:23 Respiratory Rate 20 12/27/16 20:23 Blood Pressure 146/89 H 12/27/16 20:23 Pulse Oximetry 94 12/27/16 20:23 Temperature 97.8 F 12/27/16 20:23 Pulse Rate 91 12/27/16 20:23 Respiratory Rate 20 12/27/16 20:23 Blood Pressure 146/89 H 12/27/16 20:23 Pulse Oximetry 94 12/27/16 20:23 Medical Decision Making - [facility] Narrative Medical decision making narrative: Labs / imaging were discussed in detail with the patient and family and questions are answered. Patient is given 243 mg of aspirin by mouth 1 as he has taken 81 mg of aspirin by mouth times one at home prior to arrival to the emergency department today. Patient is discussed with Dr. Woodruff from telemedicine will be admitted to the service of Dr. Diaz in improved condition. Patient is not a TPA candidate due to being outside of the window from time of onset of symptoms and mild symptoms. Patient and family are in agreement with the current plan of management. Patient is admitted to the hospital in improved condition. No further orders from accepting physician who is in agreement with the current plan of management. - Differential Diagnosis CVA, TIA, metabolic process, paresthesia - Lab Data Result diagrams: 12/27/16 21:48 12/27/16 21:48 Lab Results 12/27/16 12/27/16 12/27/16 Range/Units 21:48 21:48 21:48 WBC 10.4 (4.5-11.0) T/MM3 RBC 4.58 (4.50-5.90) M/MM3 Hgb 15.4 (13.5-17.5) GM/DL Hct 45.0 (41-53) % MCV 98.3 (80-100) UM3 MCH 33.6 (26-34) UUG MCHC 34.2 (31-37) GM/DL RDW Std Deviation 48.8 (36.9-50.2) FL Plt Count 230 (130-400) T/MM3 MPV 9.8 (9.4-12.4) UM3 Immature Gran % (Auto) 0.4 (0.0-0.5) % Neut % (Auto) 67.2 H (33-66) % Lymph % (Auto) 19.9 L (23-45) % [place] % (Auto) 10.9 H (0-9.0) % Eos % (Auto) 1.2 (0-4) % Baso % (Auto) 0.4 (0-2) % Neut # 7.0 (1.8-7.7) T/MM3 Lymph # 2.1 (1-4.8) T/MM3 [place] # 1.1 H (0-0.8) T/MM3 Eos # 0.1 (0-0.5) T/MM3 Baso # 0.0 (0-0.2) T/MM3 Abs Immat Gran (auto) 0.04 H (0.00-0.03) T/MM3 INR 0.97 L (0.99-1.21) APTT 26.7 (24-36) SEC Turbidity < 20 (0-20) Sodium 143 (134-144) MEQ/L Potassium 4.0 (3.6-5) MEQ/L Chloride 106 (98-107) MEQ/L Carbon Dioxide 29 (22-30) MEQ/L Anion Gap 8 (5-15) MEQ/L BUN 25.0 H (9-20) MG/DL Creatinine 1.1 (0.8-1.5) MG/DL GFR Calculation 65 BUN/Creatinine Ratio 23 (6-26) RATIO Glucose 93 (75-110) MG/DL Calculated Osmolality 279 (261-280) MOSM/KG Calcium 9.4 (8.4-10.2) MG/DL Total Bilirubin 0.50 (0.20-1.30) MG/DL Icterus Index < 2 (0-7) AST 40 (17-59) U/L ALT 36 (21-72) U/L Alkaline Phosphatase 109 (38-126) U/L Troponin I < 0.012 (0-0.12) ng/ml Total Protein 6.8 (6.3-8.2) G/DL Albumin 3.9 (3.5-5.0) G/DL Globulin 2.9 (2.4-3.6) G/DL Albumin/Globulin Ratio 1.3 (1.1-2.2) RATIO Specimen Hemolysis < 15 (0-25) Ur Collection Type Urine Color (YELLOW) Urine Clarity Urine pH (5.0-8.0) Ur Specific [place] (1.015-1.025) Urine Protein (NEGATIVE) Urine Glucose (UA) (NEGATIVE) Urine Ketones (NEGATIVE) Urine Occult Blood (NEGATIVE) Urine Nitrate (NEGATIVE) Urine Bilirubin (NEGATIVE) Urine Urobilinogen (NORMAL) EU/DL Ur Leukocyte Esterase (NEGATIVE) Urinalysis Comment 12/27/16 Range/Units 22:24 WBC (4.5-11.0) T/MM3 RBC (4.50-5.90) M/MM3 Hgb (13.5-17.5) GM/DL Hct (41-53) % MCV (80-100) UM3 MCH (26-34) UUG MCHC (31-37) GM/DL RDW Std Deviation (36.9-50.2) FL Plt Count (130-400) T/MM3 MPV (9.4-12.4) UM3 Immature Gran % (Auto) (0.0-0.5) % Neut % (Auto) (33-66) % Lymph % (Auto) (23-45) % [place] % (Auto) (0-9.0) % Eos % (Auto) (0-4) % Baso % (Auto) (0-2) % Neut # (1.8-7.7) T/MM3 Lymph # (1-4.8) T/MM3 [place] # (0-0.8) T/MM3 Eos # (0-0.5) T/MM3 Baso # (0-0.2) T/MM3 Abs Immat Gran (auto) (0.00-0.03) T/MM3 INR (0.99-1.21) APTT (24-36) SEC Turbidity (0-20) Sodium (134-144) MEQ/L Potassium (3.6-5) MEQ/L Chloride (98-107) MEQ/L Carbon Dioxide (22-30) MEQ/L Anion Gap (5-15) MEQ/L BUN (9-20) MG/DL Creatinine (0.8-1.5) MG/DL GFR Calculation BUN/Creatinine Ratio (6-26) RATIO Glucose (75-110) MG/DL Calculated Osmolality (261-280) MOSM/KG Calcium (8.4-10.2) MG/DL Total Bilirubin (0.20-1.30) MG/DL Icterus Index (0-7) AST (17-59) U/L ALT (21-72) U/L Alkaline Phosphatase (38-126) U/L Troponin I (0-0.12) ng/ml Total Protein (6.3-8.2) G/DL Albumin (3.5-5.0) G/DL Globulin (2.4-3.6) G/DL Albumin/Globulin Ratio (1.1-2.2) RATIO Specimen Hemolysis (0-25) Ur Collection Type Urine, clean catch Urine Color Yellow (YELLOW) Urine Clarity Clear Urine pH 6.0 (5.0-8.0) Ur Specific [place] 1.010 L (1.015-1.025) Urine Protein Negative (NEGATIVE) Urine Glucose (UA) Negative (NEGATIVE) Urine Ketones Negative (NEGATIVE) Urine Occult Blood Negative (NEGATIVE) Urine Nitrate Negative (NEGATIVE) Urine Bilirubin Negative (NEGATIVE) Urine Urobilinogen 0.2 (NORMAL) EU/DL Ur Leukocyte Esterase Negative (NEGATIVE) Urinalysis Comment Microscopic not ind. - Radiology Data CXR - No acute processes. CT HEAD - Negative. - EKG Data EKG #1 EKG results narrative: Sinus rhythm with first-degree AV block. 85 bpm. No STEMI. Disposition Clinical Impression: Left leg weakness Disposition: 02 To [facility] Condition: Improved Time of Disposition: 22:45 (Admit. Dr. Diaz. ) - Seen By: physician
[2016-12-27] MEDS ORDERED: ASPIRIN 81 MG CHEWABLE TABLET PO ONE (23:11)
[2016-12-27] MEDS ORDERED: ONDANSETRON 4 MG/2 ML INJECTION IVP PRN (23:19)
[2016-12-27] MEDS ORDERED: SENNA + DOCUSATE TABLET PO PRN (23:19)
[2016-12-27] MEDS ORDERED: HYDROCODONE/APAP 5mg/325mg TABLET PO PRN (23:19)
[2016-12-27] MEDS ORDERED: ACETAMINOPHEN 325 MG TABLET PO PRN (23:19)
[2016-12-27 23:49] VITALS: BMI 32.8
--- NOTE | 2016-12-28 00:56 | History & Physical Report ---
History of Present Illness Date: 12/28/16 Chief complaint: Left foot weakness HPI: The pt is a 76 yo who woke with a heavy sensation in his left foot only as well as a tingling sensation in the foot. He denies any history of weakness in the left or foot. He does state that for the past year he has had weakness and incordination of his left hand and fingers. There is no confusion, headache, arm weakness, dysarthria, facial asymetry. Review of Systems Comprehensive ROS: completed and no additional positive findings except those as stated - Constitutional Constitutional: Present: as per HPI. Absent: fever(s), headache(s) - EENMT Eyes: Present: as per HPI. Absent: change in vision, loss of vision - Cardiovascular Cardiovascular: Absent: chest pain, palpitations, syncope - Respiratory Respiratory: Absent: cough, dyspnea - Musculoskeletal Musculoskeletal: Absent: abnormal gait, joint swelling [facility] Patient Stated Medical History Other Respiratory Yes: bronchiectasis-lower left lobe Gastroesophageal Reflux Yes Disease Anemia Yes Other Infectious Yes: bronchiectasis Blood Transfusions Yes Clinic Medical History (Last Reviewed 12/03/16 @ 15:35 by Jacque Son Davey ) Anemia (Acute Medical) Hepatitis C (Acute Medical) Bronchiectasis (Resolved Medical) GERD (gastroesophageal reflux disease) (Resolved Medical) GERD (gastroesophageal reflux disease) (Inactive Medical) Surgical History: 196 lymph node biopsy of left shoulder/neck. 1998 hernia repair with mesh. 1998 radical prostatectomy (prostate cancer). 2007 hiatal hernia repair and repair of upside down stomach. 2013 bilateral cataracts and bags from upper and lower eyes removed Family History: Family History (Last Reviewed 12/03/16 @ 15:35 by LM Justice) Mother Brain cancer Kidney cancer, primary, with metastasis from kidney to other site Father Hypertension Congestive heart failure - Social History Smoking status: Never smoker Substance use type: does not use Alcohol intake: never Alcohol intake frequency: does not drink Housing: house Household members: spouse Medications Home Medications Medication Instructions Recorded Confirmed Type Magnesium 250 mg PO DAILY #0 05/10/08 12/27/16 History Ergocalciferol (Vitamin D2) 400 unit PO DAILY #0 tab 09/11/13 12/27/16 History [Vitamin D] Furosemide [Lasix] 20 mg PO DAILY #0 tab 09/11/13 12/27/16 History Acetaminophen [Tylenol Extra 1,000 mg PO DAILY #0 tab 03/20/15 12/27/16 History Strength] Ascorbic Acid [Vitamin C] 500 mg PO DAILY #0 tab 05/28/16 12/27/16 History Aspirin [Aspir 81] 81 mg PO DAILY #0 tab 05/28/16 12/27/16 History Azithromycin 250 tab PO DAILY #0 05/28/16 12/27/16 History Fluticasone Propionate [Flonase 1 spray EA NOSTRIL BID PRN #0 05/28/16 12/27/16 History Allergy Relief] Fluticasone/Vilanterol [Breo 1 dose INH DAILY #0 05/28/16 12/27/16 History Ellipta 200-25 Mcg Inhaler] Ipratropium/Albuterol Sulfate 2 puff PO 2-4XD PRN #0 inhaler 05/28/16 12/27/16 History [Combivent Respimat Inhal [place]] Omeprazole 20 mg PO DAILY #0 05/28/16 12/27/16 History PARoxetine HCl [Paroxetine HCl] 20 mg PO DAILY #0 05/28/16 12/27/16 History buPROPion HCl [Bupropion Xl] 150 mg PO DAILY #0 05/28/16 12/27/16 History guaiFENesin [Mucinex] 600 mg PO DAILY #0 05/28/16 12/27/16 History Potassium 250 mg PO DAILY 12/27/16 12/27/16 History Allergies Allergy/AdvReac Type Severity Reaction Status Date / Time nitrofurantoin AdvReac Mild NAUSEA Verified 12/27/16 20:51 IODINE DYE Allergy Severe Anaphylactic Uncoded 12/27/16 20:51 Shock BEE STING Allergy Unknown Uncoded 12/27/16 20:51 Exam Vital Signs: Temperature 96.6 F L 12/28/16 00:00 Pulse Rate 75 12/28/16 00:00 Respiratory Rate 20 12/28/16 00:00 Blood Pressure 153/92 H 12/28/16 00:00 Pulse Oximetry 96 12/28/16 00:00 Height/Weight/BMI: Height 1.78 m Weight 103.8 kg Body Mass Index 32.8 - Constitutional Present: no acute distress - Routine HEENT Exam Head: Present: normocephalic, atraumatic Eye: Present: EOMI - Routine Neck Exam Present: supple - Routine Respiratory Exam Present: CTA bilaterally - Routine Cardiovascular Exam Present: RRR, no murmur - Routine Abdominal Exam Present: soft, normoactive bowel sounds, non tender - Routine Extremities Exam Present: full ROM. Absent: edema - Routine Back/Spine/Pelvis Exam Back/Spine: Present: full ROM - Routine Skin Exam Present: intact - Routine Neurological Exam Present: alert, oriented X3, CN II-XII intact. Absent: sensory deficit, motor deficit Results - Labs CBC & Chem 7: 12/27/16 21:48 12/27/16 21:48 Assessment and Plan (1) GERD (gastroesophageal reflux disease) Current visit: Yes Status: Acute 12/28/16 01:00 continue with pt home meds. (2) Leg paresthesia Current visit: Yes Status: Acute 12/28/16 00:58 CT head is negative for any acute findings, will proceed with MRI in am, monitor on telemetry, frequent neuro checks, PT.OT consulted. DVT Prophylaxis: SCD's GI Prophylaxis: Protonix Resuscitation Status: Full Code Sepsis Assessment - Evaluation Sepsis screening result: No Definite Risk Hospital Course Summary Disclaimer: The visit summary below is not to be considered part of the above Progress Note.
--- NOTE | 2016-12-28 08:58 | XRay Report ---
Indication: LLE Weakness PROCEDURE: XR chest 1V: Encounter: Initial Comparison: None FINDINGS: Linear scarring in the left lower lobe. The lungs are otherwise clear. There is no consolidation, pleural effusion or pneumothorax identified. The heart size, pulmonary vasculature and mediastinum are within normal limits. Severe degenerative change in the shoulders. IMPRESSION: No acute cardiopulmonary abnormality. .
--- NOTE | 2016-12-28 09:00 | CT Scan Report ---
Indication: LLE Weakness PROCEDURE: CT head/brain wo con: Encounter: Initial Comparison: None Technique: Axial CT images through the head were performed without contrast. Iterative Reconstruction dose reducing technique was utilized. FINDINGS: Chronic appearing left occipital encephalomalacia. Mild atrophy. The ventricles are of normal size, shape, and contour for the patient's age. There are scattered areas of low attenuation in the white matter which most likely represent changes from chronic microvascular ischemia. The brainstem, cerebellum, and cerebral hemispheres otherwise have a normal morphology and CT attenuation. There is no evidence of midline displacement. No hemorrhage, signs of acute territorial stroke, mass effect, mass lesions, or edema is evident. The visualized portions of the skull base, midface, and calvarium demonstrate no abnormality. Mucus retention cysts in the maxillary sinuses. The tympanic and mastoid cavities appear normal. IMPRESSION: No acute intracranial abnormality or hemorrhage. There is a preliminary report by [facility]. .
[2016-12-28] MEDS ORDERED: FLUTICASONE NASAL SPRAY 50mcg EA NOSTRIL PRN (09:48)
[2016-12-28] MEDS ORDERED: ALBUTEROL/IPRATROPIUM 2.5mg-0.5mg/3ml NEB ORAL INH PRN (09:48)
[2016-12-28] MEDS ORDERED: ASPIRIN *EC* 81 MG TABLET PO SCH (10:00)
[2016-12-28] MEDS ORDERED: [UNRECOGNIZED DRUG - OTHER] INH SCH (10:00)
--- NOTE | 2016-12-28 10:20 | Magnetic Resonance Report ---
Indication: LLE weakness PROCEDURE: MR head/brain wo con: Encounter: Initial Comparisons: Head CT dated December 27, 2016 Technique: Multiplanar, multisequence, MR imaging of the head without contrast was acquired. FINDINGS: Small punctate focus of acute diffusion restriction in the right posterior frontal lobe on axial image #18. This area has T2/FLAIR hyperintensity as expected. Old left occipital lobe infarct. The ventricles are of normal size, shape, and contour for the patient's age. There are small nonspecific punctate areas of T2-weighted and T2 FLAIR weighted signal abnormality in the deep frontoparietal white matter that most likely represent small vessel ischemic disease. This is of a degree that is considered to be normal for the patient's age. The brain stem, cerebellum, and cerebral hemispheres otherwise have a normal morphologic appearance as well as MR signal intensity on all pulse sequences. There is no evidence of an intracranial mass lesion, intracranial hemorrhage, or hydrocephalus. The visualized portions of the orbits, calvarium, paranasal sinuses, and skull base demonstrate no significant abnormality. IMPRESSION: Punctate acute right posterior frontal lobe infarct in the MCA territory. .
[2016-12-28] MEDS: MAGNESIUM OXIDE 400 MG TABLET PO SCH (10:51)
[2016-12-28] MEDS: PAROXETINE 20 MG TABLET PO SCH (10:51)
[2016-12-28] MEDS: FUROSEMIDE 20 MG TABLET PO SCH (10:51)
[2016-12-28] MEDS: ASCORBIC ACID 500 MG TABLET PO SCH (10:51)
[2016-12-28] MEDS: ASPIRIN 325 MG TABLET PO SCH (10:51)
[2016-12-28] MEDS: OMEPRAZOLE 20 MG CAPSULE PO SCH (10:51)
[2016-12-28] MEDS: GUAIFENESIN LA 600 MG TABLET PO SCH (10:51)
[2016-12-28] MEDS: BuPROPion XL 150mg (24HR) TABLET PO SCH (10:52)
[2016-12-29] MEDS: OMEPRAZOLE 20 MG CAPSULE PO SCH (06:25)
[2016-12-29] MEDS ORDERED: PNEUMOCOCCAL 23 VACCINE 0.5ml INJECTION IM ONE (07:46)
[2016-12-29] MEDS: GUAIFENESIN LA 600 MG TABLET PO SCH (08:18)
[2016-12-29] MEDS: BuPROPion XL 150mg (24HR) TABLET PO SCH (08:18)
[2016-12-29] MEDS: ASPIRIN 325 MG TABLET PO SCH (08:18)
[2016-12-29] MEDS: MAGNESIUM OXIDE 400 MG TABLET PO SCH (08:18)
[2016-12-29] MEDS: ASCORBIC ACID 500 MG TABLET PO SCH (08:19)
[2016-12-29] MEDS: FUROSEMIDE 20 MG TABLET PO SCH (08:19)
[2016-12-29] MEDS: PAROXETINE 20 MG TABLET PO SCH (08:19)
--- NOTE | 2016-12-29 09:21 | Ultrasound Report ---
EXAM: US carotid doppler BI LOCATION OF DICTATION: [place] HISTORY: TIA COMPARISON: No prior studies available for comparison. TECHNIQUE: Multiple real-time grayscale sonographic images were obtained of the carotid arteries bilaterally with color flow and spectral analysis. Peak systolic velocities are measured in centimeters per second. FINDINGS: Velocities are as follows: RIGHT CAROTID SYSTEM: CCA: 73 cm/S Proximal ICA: 53.2 cm/S Mid ICA: 49.5 cm/S Distal ICA: 45.7 cm/S ECA: 72.5 cm/S Vertebral: 28.4 and antegrade ICA/CCA ratio: 0.7 LEFT CAROTID SYSTEM: CCA: 61.4 cm/S Proximal ICA: 48.1 cm/S Mid ICA: 45.8 cm/S Distal ICA: 42.4 cm/S ECA: 49.4 cm/S Vertebral: 43 and antegrade ICA/CCA ratio: 0.7 No significant abscess chronic disease demonstrated. IMPRESSION: No evidence of significant arteriosclerotic plaque or stenosis involving the right or left carotid arteries .
[2016-12-29] MEDS ORDERED: PNEUMOCOCCAL VAC ADMIN CHARGE INJ ONE (11:00)
--- NOTE | 2016-12-29 11:23 | Progress Note ---
Subjective: Pt seen and examined at 9am. He remains asymptomatic. MRI showed a posterior frontal lobe new CVA. Carotid dopplers have been ordered as well as a 2-D echo. Objective Vital signs: Temperature 96.1 F L 12/29/16 07:00 Pulse Rate 70 12/29/16 08:00 Respiratory Rate 14 12/29/16 07:00 Blood Pressure 141/81 H 12/29/16 07:00 Pulse Oximetry 95 12/29/16 07:00 Rhythm: Normal Sinus Rhythm Height/Weight/BMI: Height 5 ft 10 in Weight 103.9 kg Body Mass Index 32.8 - Constitutional Present: no acute distress - Routine HEENT Exam Head: Present: normocephalic, atraumatic Eye: Present: EOMI, PERRL - Routine Respiratory Exam Present: CTA bilaterally - Routine Cardiovascular Exam Present: RRR, S1, S2 - Routine Abdominal Exam Present: soft, non distended, non tender - Routine Extremities Exam Absent: cyanosis, clubbing, edema - Routine Neurological Exam Present: alert, oriented X3, CN II-XII intact, moving all extremities Results - Labs CBC & Chem 7: 12/27/16 21:48 12/27/16 21:48 Assessment and Plan (1) GERD (gastroesophageal reflux disease) Current visit: Yes Status: Acute 12/28/16 01:00 continue with pt home meds. (2) Leg paresthesia Current visit: Yes Status: Acute 12/28/16 00:58 CT head is negative for any acute findings, will proceed with MRI in am, monitor on telemetry, frequent neuro checks, PT.OT consulted. 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 - Discussed case with Dr Morales - who was examining pt at the bedside. Agree with current diagnostic work up. Carotid dopplers - no significant stenosis. Echo pending. Meds will be changed to ASA (81mg) and Plavix 75 mg/day. Change omeprazole to Ranitidine as well. - Check lipid profile - LDL goal is 70 or less. - BP is normal at present. 2) GERD by history - On Ranitidine. 3) Depression, stable continue present Rx Prevention SCD's Ranitidine. - Time spent with patient 25 - 35 minutes Sepsis Assessment - Evaluation Sepsis screening result: No Definite Risk Hospital Course Summary Disclaimer: The visit summary below is not to be considered part of the above Progress Note.
[2016-12-29] MEDS: CLOPIDOGREL 75 MG TABLET PO SCH (11:32)
--- NOTE | 2016-12-29 13:19 | Consultation ---
DATE OF CONSULTATION 12/29/[address] Diaz PATIENT'S CHIEF COMPLAINT Left lower extremity weakness. HISTORY OF PRESENT ILLNESS Patient is a 76-year-old male with no significant past medical history. The patient presented with new onset left lower extremity weakness upon awakening two days ago. His symptoms did not improve during the course of the day and he went to the ER. The patient was admitted to [facility]. He had an MRI of the brain that showed an acute ischemic stroke in the right inferior posterior frontal lobe which matched the patient's symptoms. This is most likely in the anterior cerebral artery distribution and represents a small lacunar stroke. The patient's symptoms have been improving since admission. He has had good work with physical therapy. His lab work has been unremarkable. His blood pressure has been in the 140-150/80-90 ranges. The patient was taking aspirin 81 mg p.o. q.d. for stroke prevention prior to his admission. This was increased to 325 mg p.o. q.d. Patient reports having a history of dyspepsia and acid reflux. He has had no other neurological symptoms of weakness or numbness. The patient has no prior history of stroke. His carotid Doppler showed no significant stenosis bilaterally. His echocardiogram is still pending. The patient has been on telemetry and his heart rhythm has been normal. PHYSICAL EXAMINATION On physical examination, the patient was awake, alert, oriented x3. Pupils were round, reactive and equal. Extraocular muscles were intact. Visual field was full. Speech was fluent. Motor examination in the upper extremities was 5/ 5, in the left lower extremity was 5-/5, on the right lower extremity it was 5/ 5. Sensory examination was symmetrical for light touch and pinprick. Deep tendon reflexes were 2-/4 in all joint areas. Plantar reflexes were in flexion bilaterally. Coordination for [id number] was slightly slower on the right compared to the left. The patient's gait was not assessed at the time. The patient was walking with physical therapy earlier in the day with no difficulties. ASSESSMENT AND PLAN 1. Small vessel acute ischemic stroke affecting small branch of the anterior cerebral artery distribution. This has responded to aspirin 325 mg p.o. q.d. The patient has a history of acid reflux and dyspepsia. For long-term treatment , it will be better for him to be on 81 mg of aspirin in addition to Plavix 75 mg p.o. q.d. If patient does fine after three months, he can be kept on Plavix alone. 2.. Patient has and has no known history of hyperlipidemia. This needs to be checked. If LDL is over 100, patient may benefit from being on medications including Lipitor. 3. Continue monitoring for blood pressure changes. Avoid any hypotension. 4. Provide good fluid intake. 5. Continue physical therapy as an outpatient to improve balance and coordination. 6. The patient can follow up with Dr. Greer within a month of discharge to adjust medication for long-term treatment of stroke. SEFERINO
[2016-12-29] MEDS ORDERED: RANITIDINE 300 MG TABLET PO SCH (21:00)
[2016-12-30] MEDS ORDERED: ASPIRIN *EC* 81 MG TABLET PO SCH (09:00)
[2016-12-30] MEDS: FUROSEMIDE 20 MG TABLET PO SCH (09:16)
[2016-12-30] MEDS: GUAIFENESIN LA 600 MG TABLET PO SCH (09:16)
[2016-12-30] MEDS: MAGNESIUM OXIDE 400 MG TABLET PO SCH (09:16)
[2016-12-30] MEDS: CLOPIDOGREL 75 MG TABLET PO SCH (09:16)
[2016-12-30] MEDS: PAROXETINE 20 MG TABLET PO SCH (09:16)
[2016-12-30] MEDS: ASCORBIC ACID 500 MG TABLET PO SCH (09:17)
[2016-12-30] MEDS: BuPROPion XL 150mg (24HR) TABLET PO SCH (09:17)
[2016-12-30] MEDS ORDERED: FLUTICASONE NASAL SPRAY 50mcg EA NOSTRIL PRN (12:52)
[2016-12-30 14:23] VITALS: BP 123/80; RESP 16; TEMP 97.7; O2SAT 91
[2016-12-30 14:24] VITALS: PULSE 136
--- NOTE | 2016-12-30 15:36 | Discharge Instructions ---
Discharge Plan - Med Rec/Dispo Celia Instructions: Weakness (GEN) Prescriptions: New Clopidogrel [Plavix] 75 mg PO DAILY #30 tab Fluticasone Nasal [place] [Flonase] 1 spray EA NOSTRIL BID PRN 30 Days #1 bottle PRN Reason: Congestion raNITIdine HCl [Ranitidine HCl] 300 mg PO HS tablet Continue Ergocalciferol (Vitamin D2) [Vitamin D] 400 unit PO DAILY #0 tab Furosemide [Lasix] 20 mg PO DAILY #0 tab Acetaminophen [Tylenol Extra Strength] 1,000 mg PO DAILY #0 tab PARoxetine HCl [Paroxetine HCl] 20 mg PO DAILY #0 Potassium 250 mg PO DAILY Magnesium 250 mg PO DAILY #0 Aspirin [Aspir 81] 81 mg PO DAILY #0 tab guaiFENesin [Mucinex] 600 mg PO DAILY #0 Ascorbic Acid [Vitamin C] 500 mg PO DAILY #0 tab Fluticasone/Vilanterol [Breo Ellipta 200-25 Mcg Inhaler] 1 dose INH DAILY #0 Ipratropium/Albuterol Sulfate [Combivent Respimat Inhal [place]] 2 puff PO 2- 4XD PRN #0 inhaler PRN Reason: Shortness Of Air Fluticasone Propionate [Flonase Allergy Relief] 1 spray EA NOSTRIL BID PRN #0 PRN Reason: ALLERY SYMPTOMS buPROPion HCl [Bupropion Xl] 150 mg PO DAILY #0 Discontinued Azithromycin 250 tab PO DAILY #0 Omeprazole 20 mg PO DAILY #0 - Disposition 01 Discharged Home, Self-Care
--- NOTE | 2016-12-30 15:53 | Discharge Summary ---
Discharge Information Date of admission: 12/29/16 14:00 Anticipated date of discharge: 12/30/16 Attending Physician: Kevin Diaz MD Primary care physician: Arian Garcias DO Consults: 12/29/16 IRU Screening [Inpatient Rehab Screening] [CONS] Routine Comment Text:: STROKE - Discharge Diagnosis (1) GERD (gastroesophageal reflux disease) Status: Acute (2) Leg paresthesia Status: Acute (3) Left leg weakness Status: Acute Discharge Diagnosis: 1) NEW fronto parietal lobe CVA on the R hemisphere. - Discussed case with Dr Morales - who was examining pt at the bedside. Carotid dopplers - no significant stenosis. - Echo no source of emboli - LDL pending - will start Lipitor 40mg/day 2) GERD by history - Stop omeprazole. - D/C on Ranitidine. 3) COPD - Resume inhalers as before - Combivent and LABA + Inhaled steroid. 4) Depression, stable continue present Rx DISPOSITION - HOME WITH HOME HEALTH. - Laboratory Labs: 12/30/16 05:15 12/30/16 05:15 History of Present Illness HPI: The pt is a 76 yo who woke with a heavy sensation in his left foot only as well as a tingling sensation in the foot. He denies any history of weakness in the left or foot. He does state that for the past year he has had weakness and incordination of his left hand and fingers. There is no confusion, headache, arm weakness, dysarthria, facial asymetry. Objective Vital signs: Temperature 97.7 F 12/30/16 14:19 Pulse Rate 136 H 12/30/16 14:21 Respiratory Rate 16 12/30/16 14:21 Blood Pressure 123/80 12/30/16 14:21 Pulse Oximetry 91 12/30/16 14:21 Rhythm: Normal Sinus Rhythm Height/Weight/BMI: Weight 102.7 kg - Constitutional Present: no acute distress, well nourished, well developed - Routine HEENT Exam Head: Present: normocephalic, atraumatic Eye: Present: EOMI, PERRL - Routine Respiratory Exam Present: CTA bilaterally - Routine Cardiovascular Exam Present: RRR, S1, S2 - Routine Abdominal Exam Present: soft, non distended, non tender - Routine Extremities Exam Absent: cyanosis, clubbing, edema - Routine Skin Exam Present: intact - Routine Neurological Exam Present: alert, oriented X3, CN II-XII intact - Routine Psychiatric Exam Present: normal affect, normal thought process, good insight, good judgment Hospital Course Mr Broussard came after he noticed he had heaviness on his L foot. 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 His symptoms promptly resolved after admission. Initial CT was negative for any bleed. An MRI showed a small frontoparietal CVA in the R hemisphere. His carotid doppler was negative, 2-D echo (Verbal report - Dr Triplett) - no source of emboli but study was of poor quality due to body habitus. LDL was not completed. Pt is stable and will be going home. No need for rehab. Will be going home with home health Follow up with Neurologist in 1 to 2 weeks and PCP before 1 month Time spent with patient: greater than 35 minutes Discharge Plan - Med Rec/Dispo [place] Instructions: Weakness (GEN) Prescriptions: New Clopidogrel [Plavix] 75 mg PO DAILY #30 tab Fluticasone Nasal [place] [Flonase] 1 spray EA NOSTRIL BID PRN 30 Days #1 bottle PRN Reason: Congestion raNITIdine HCl [Ranitidine HCl] 300 mg PO HS tablet Continue Ergocalciferol (Vitamin D2) [Vitamin D] 400 unit PO DAILY #0 tab Furosemide [Lasix] 20 mg PO DAILY #0 tab Acetaminophen [Tylenol Extra Strength] 1,000 mg PO DAILY #0 tab PARoxetine HCl [Paroxetine HCl] 20 mg PO DAILY #0 Potassium 250 mg PO DAILY Magnesium 250 mg PO DAILY #0 Aspirin [Aspir 81] 81 mg PO DAILY #0 tab guaiFENesin [Mucinex] 600 mg PO DAILY #0 Ascorbic Acid [Vitamin C] 500 mg PO DAILY #0 tab Fluticasone/Vilanterol [Breo Ellipta 200-25 Mcg Inhaler] 1 dose INH DAILY #0 Ipratropium/Albuterol Sulfate [Combivent Respimat Inhal [place]] 2 puff PO 2- 4XD PRN #0 inhaler PRN Reason: Shortness Of Air Fluticasone Propionate [Flonase Allergy Relief] 1 spray EA NOSTRIL BID PRN #0 PRN Reason: ALLERY SYMPTOMS buPROPion HCl [Bupropion Xl] 150 mg PO DAILY #0 Discontinued Azithromycin 250 tab PO DAILY #0 Omeprazole 20 mg PO DAILY #0 - Disposition 86 Home Health Service
--- NOTE | 2016-12-30 16:00 | Echocardiogram ---
DATE OF PROCEDURE December 30, [address] Kevin Diaz This is a two-dimensional echo with spectral Doppler, color-flow and M-mode. It was obtained in a patient with CVA. This is a technically very difficult study. Left atrial dimension appears to be normal. Left ventricle end-diastolic dimension is normal. Left ventricle wall thickness is normal. LV systolic function is hyperdynamic with ejection fraction of 75%. Right atrium is normal. Right ventricle is normal. Aortic root dimension is normal. Mitral valve appears to be normal. Aortic valve was not visualized but Doppler studies indicate no stenosis or insufficiency. Tricuspid valve shows no tricuspid regurgitation. Pulmonary valve was not visualized. There is no pericardial effusion. Grossly there is no intracardiac thrombus or mass. However, the quality of the study precludes good assessment. IMPRESSION 1. Technically very difficult study. 2. Hyperdynamic left ventricle with ejection fraction of about 75%. 3. Grossly no intracardiac thrombus or mass, however, the quality of the study precludes adequate assessment. MTDD
== END 2016-12-30 16:40 | disposition home health service (06) | DRG 66 ==
LOC: MED 20:23 → ED 20:23 → MED 23:38
PROVIDERS: ADMIT Internal Medicine; ATTEND Internal Medicine

== ENCOUNTER 2017-04-16 02:36 | Inpatient (IN) ==
[2017-04-16] MEDS ORDERED: ALBUTEROL/IPRATROPIUM 2.5mg-0.5mg/3ml NEB AEROSOL ONE (02:53)
[2017-04-16] MEDS: SALINE FLUSH 10ml SYRINGE IVF PRN ×3 (02:55→06:01)
--- NOTE | 2017-04-16 03:04 | Emergency Department Report ---
Weakness HPI - General Chief complaint: Weakness Stated complaint: Weakness Time Seen by Provider: 04/16/17 02:51 Source: patient, EMS, RN notes reviewed, old records reviewed Mode of arrival: EMS Limitations: no limitations - History of Present Illness HPI Narrative: 76yo man presented to the ER for evaluation of weakness. Pt got up to darrian rucker; he made it to the bathroom, but not to the toilet, when he lost steam and sat down on the floor. called EMS to bring pt to the ER for evaluation. Pt has been seen by his PCM recently - lasix dose was doubled to decrease pulmonary congestion. Pt is tachypneic and tachycardic. MD Complaint: generalized weakness Onset (ago): minute(s) Duration: constant Location: generalized Migration: none Severity: moderate Relieving factors: none Exacerbating factors: movement, exertion Context: new medication, history of similar Associated symptoms: denies other symptoms - Related Data Home Medications Medication Instructions Recorded Confirmed Fluticasone/Vilanterol [Breo 1 dose INH DAILY #0 05/28/16 04/16/17 Ellipta 200-25 Mcg Inhaler] azithromycin 250 mg tablet 250 mg PO QAM tab 01/27/17 04/16/17 Acetaminophen [Acetaminophen Extra 1,000 mg PO DAILY 04/16/17 04/16/17 Strength] Albuterol/Ipratropium [Duoneb] 1 unit AEROSOL Q4H PRN 04/16/17 04/16/17 Cyanocobalamin (Vitamin B-12) 250 mcg SL DAILY 04/16/17 04/16/17 [B-12] Folic Acid 400 mg PO DAILY 04/16/17 04/16/17 Furosemide [Lasix] 20 mg PO DAILY 04/16/17 04/16/17 Previous Rx's Medication Instructions Recorded Clopidogrel [Plavix] 75 mg PO DAILY #30 tab 12/30/16 Fluticasone Nasal [place] [Flonase] 1 spray EA NOSTRIL BID PRN 30 Days 12/30/16 #1 bottle raNITIdine HCl [Ranitidine HCl] 300 mg PO HS tab 12/30/16 Allergies Allergy/AdvReac Type Severity Reaction Status Date / Time bee venom protein (honey bee) Allergy Unknown Verified 04/16/17 02:50 iodine Allergy Unknown Verified 04/16/17 02:50 nitrofurantoin AdvReac Mild NAUSEA Verified 04/16/17 02:50 IODINE DYE Allergy Severe Anaphylactic Uncoded 04/16/17 02:50 Shock Review of Systems All systems: reviewed and negative except as stated Constitutional: Reports: as per HPI, weakness. Denies: fever, chills, weight change, night sweats [facility] Patient Stated Medical History Chronic Obstructive Pulmonary Yes Disease (COPD) Other Respiratory Yes: bronchiectasis-lower left lobe Gastroesophageal Reflux Yes Disease Anemia Yes Other Infectious Yes: bronchiectasis Blood Transfusions Yes Clinic Medical History (Last Reviewed 03/30/17 @ 11:22 by Taylor Bridges Davey) COPD (chronic obstructive pulmonary disease) (Chronic Medical) Ischemic cerebrovascular accident (CVA) (Chronic Medical) Anemia (Chronic Medical) Hepatitis C (Chronic Medical) Bronchiectasis (Resolved Medical) CVA (cerebral vascular accident) (Resolved Medical) GERD (gastroesophageal reflux disease) (Resolved Medical) GERD (gastroesophageal reflux disease) (Inactive Medical) Surgical History: 1961 lymph node biopsy of left shoulder/neck. 1998 hernia repair with mesh. 1998 radical prostatectomy (prostate cancer). 2007 hiatal hernia repair and repair of upside down stomach. 2013 bilateral cataracts and bags from upper and lower eyes removed Family History: Family History (Last Reviewed 03/30/17 @ 11:22 by Taylor Bridges Davey) Mother Brain cancer Kidney cancer, primary, with metastasis from kidney to other site Father Hypertension Congestive heart failure - Social History Smoking status: Never smoker Physical Exam - Limitations Limitations: no limitations - General General appearance: alert, in no apparent distress, obese - Normal Exams: Head:: Normocephalic without trauma Eyes:: Pupils are PERRLA w/ EOMI, No scleral icterus, irritation, or foreign bodies noted ENMT:: No facial trauma, nasal exudates, pharyngeal erythema, or exudates are noted Neck:: Full range of motion, without adenopathy Cardiovascular:: Regular rate and rhythm, without murmur or gallop, Pulses 2+ all extremities, capillary refill, <2 seconds all extremities Abdomen:: Bowel sounds positive, soft, non-tender, non-distended, no hepatosplenomegaly, masses or bruits noted Lymphatic:: No lymphadenopathy Musculoskeletal:: No tenderness, or deformity noted, good range of motion Integumentary:: No rashes, hives, or bruising noted Neurological:: Patient is alert, and oriented Psychiatric:: Patient exhibits, appropriate attention - Chest Chest inspection: Present: normal inspection, symmetric chest wall rise. Absent : tenderness, rash - Respiratory Respiratory exam: Absent: normal lung sounds bilaterally (Decreased air movement throughout), respiratory distress, wheezes, prolonged expiratory phase , crackles Course - Consultations Consultation #1: [place] Telemed: Will accept for further eval and treatment. Time: 04:03 Vital Signs Temperature 98.6 F 04/16/17 02:36 Pulse Rate 122 H 04/16/17 02:36 Respiratory Rate 28 H 04/16/17 02:36 Blood Pressure 135/91 H 04/16/17 02:36 Pulse Oximetry 95 04/16/17 02:36 Temperature 98.6 F 04/16/17 02:36 Pulse Rate 120 H 04/16/17 03:30 Respiratory Rate 18 04/16/17 03:59 Blood Pressure 147/80 H 04/16/17 03:30 Pulse Oximetry 93 04/16/17 03:59 Weakness - MDM Narrative Medical decision making narrative: 76yo man with numerous cardiac and pulm co-morbidities. Pts sx appear mostly pulm in nature (COPD exacerbation), however troponin is elevated and has been on double dose lasix for CHF. Given age, comorbidities, elevated troponin, and marginally increased O2 requirement, will contact hospitalist for admission for further eval and treatment. - Differential Diagnosis Differential diagnosis: Likely: acute myocardial infarction, anemia, hypoglycemia, sepsis, dehydration - Medical Records Attestation: I reviewed the patient's medical records. - Lab Data Attestation: I reviewed the patient's lab results. Result diagrams: 04/16/17 03:03 04/16/17 03:03 Lab Results 04/16/17 04/16/17 04/16/17 Range/Units 03:03 03:03 03:03 WBC 10.0 (4.5-11.0) T/MM3 RBC 4.60 (4.50-5.90) M/MM3 Hgb 15.8 (13.5-17.5) GM/DL Hct 46.1 (41-53) % MCV 100.2 H (80-100) UM3 MCH 34.3 H (26-34) UUG MCHC 34.3 (31-37) GM/DL RDW Std Deviation 48.1 (36.9-50.2) FL Plt Count 226 (130-400) T/MM3 MPV 9.6 (9.4-12.4) UM3 Immature Gran % (Auto) 0.6 H (0.0-0.5) % Neut % (Auto) 74.7 H (33-66) % Lymph % (Auto) 11.8 L (23-45) % Hubbard % (Auto) 11.9 H (0-9.0) % Eos % (Auto) 0.5 (0-4) % Baso % (Auto) 0.5 (0-2) % Neut # (Auto) 7.4 (1.8-7.7) T/MM3 Lymph # (Auto) 1.2 (1-4.8) T/MM3 Hubbard # (Auto) 1.2 H (0-0.8) T/MM3 Eos # (Auto) 0.1 (0-0.5) T/MM3 Baso # (Auto) 0.1 (0-0.2) T/MM3 Abs Immat Gran (auto) 0.06 H (0.00-0.03) T/MM3 D-Dimer 281 H (0-230) NG/ML VBG pH (7.31-7.41) VBG pCO2 (40-52) MMHG VBG pO2 (40-52) MMHG VBG HCO3 (22-26) MEQ/L VBG Total CO2 MEQ/L VBG O2 Saturation % VBG Base Excess (-2.0-2.0) MMOL/L O2 Delivery Method Turbidity < 20 (0-20) Sodium 142 (134-144) MEQ/L Potassium 4.2 (3.6-5) MEQ/L Chloride 100 (98-107) MEQ/L Carbon Dioxide 31 H (22-30) MEQ/L Anion Gap 11 (5-15) MEQ/L BUN 21.0 H (9-20) MG/DL Creatinine 1.4 (0.8-1.5) MG/DL GFR Calculation 49 BUN/Creatinine Ratio 15 (6-26) RATIO Glucose 137 H (75-110) MG/DL Calculated Osmolality 278 (261-280) MOSM/KG Calcium 9.4 (8.4-10.2) MG/DL Phosphorus 2.7 (2.5-4.5) MG/DL Magnesium 2.1 (1.6-2.3) MG/DL Total Bilirubin 0.80 (0.20-1.30) MG/DL Icterus Index < 2 (0-7) AST 70 H (17-59) U/L ALT 43 (21-72) U/L Alkaline Phosphatase 107 (38-126) U/L Troponin I 0.111 (0-0.12) ng/ml B-Natriuretic Peptide 442 H (0-175) pg/mL Total Protein 8.1 (6.3-8.2) G/DL Albumin 4.5 (3.5-5.0) G/DL Globulin 3.6 (2.4-3.6) G/DL Albumin/Globulin Ratio 1.3 (1.1-2.2) RATIO Plasma Lactate 1.8 (0.6-2.2) MMOL/L Specimen Hemolysis < 15 (0-25) // Range/Units 04:06 WBC (4.5-11.0) T/MM3 RBC (4.50-5.90) M/MM3 Hgb (13.5-17.5) GM/DL Hct (41-53) % MCV (80-100) UM3 MCH (26-34) UUG MCHC (31-37) GM/DL RDW Std Deviation (36.9-50.2) FL Plt Count (130-400) T/MM3 MPV (9.4-12.4) UM3 Immature Gran % (Auto) (0.0-0.5) % Neut % (Auto) (33-66) % Lymph % (Auto) (23-45) % Hubbard % (Auto) (0-9.0) % Eos % (Auto) (0-4) % Baso % (Auto) (0-2) % Neut # (Auto) (1.8-7.7) T/MM3 Lymph # (Auto) (1-4.8) T/MM3 Hubbard # (Auto) (0-0.8) T/MM3 Eos # (Auto) (0-0.5) T/MM3 Baso # (Auto) (0-0.2) T/MM3 Abs Immat Gran (auto) (0.00-0.03) T/MM3 D-Dimer (0-230) NG/ML VBG pH 7.440 H (7.31-7.41) VBG pCO2 48 (40-52) MMHG VBG pO2 31 L (40-52) MMHG VBG HCO3 33 H (22-26) MEQ/L VBG Total CO2 34.1 MEQ/L VBG O2 Saturation 63.0 % VBG Base Excess 7.3 H (-2.0-2.0) MMOL/L O2 Delivery Method Nasal cannula, liter Turbidity (0-20) Sodium (134-144) MEQ/L Potassium (3.6-5) MEQ/L Chloride (98-107) MEQ/L Carbon Dioxide (22-30) MEQ/L Anion Gap (5-15) MEQ/L BUN (9-20) MG/DL Creatinine (0.8-1.5) MG/DL GFR Calculation BUN/Creatinine Ratio (6-26) RATIO Glucose (75-110) MG/DL Calculated Osmolality (261-280) MOSM/KG Calcium (8.4-10.2) MG/DL Phosphorus (2.5-4.5) MG/DL Magnesium (1.6-2.3) MG/DL Total Bilirubin (0.20-1.30) MG/DL Icterus Index (0-7) AST (17-59) U/L ALT (21-72) U/L Alkaline Phosphatase (38-126) U/L Troponin I (0-0.12) ng/ml B-Natriuretic Peptide (0-175) pg/mL Total Protein (6.3-8.2) G/DL Albumin (3.5-5.0) G/DL Globulin (2.4-3.6) G/DL Albumin/Globulin Ratio (1.1-2.2) RATIO Plasma Lactate (0.6-2.2) MMOL/L Specimen Hemolysis (0-25) - Radiology Data Attestation: I reviewed the patient's radiology results. CXR: Improved CXR; no acute CT pathology. - EKG Data EKG #1 EKG attestation: Yes: I reviewed and interpreted this EKG. EKG shows normal: sinus rhythm, axis, intervals, QRS complexes, ST-T waves Rate: tachycardia Rhythm: PVC's Interpretation: no acute changes Disposition Clinical Impression: COPD (chronic obstructive pulmonary disease) Qualifiers: COPD type: unspecified COPD Qualified Code(s): J44.9 - Chronic obstructive pulmonary disease, unspecified Disposition: [address] [facility] [place] Print Language: Ukrainian Condition: Improved Prescriptions: No Action Clopidogrel [Plavix] 75 mg PO DAILY #30 tab Fluticasone Nasal [place] [Flonase] 1 spray EA NOSTRIL BID PRN 30 Days #1 bottle PRN Reason: Congestion raNITIdine HCl [Ranitidine HCl] 300 mg PO HS tab Folic Acid 400 mg PO DAILY Cyanocobalamin (Vitamin B-12) [B-12] 250 mcg SL DAILY Acetaminophen [Acetaminophen Extra Strength] 1,000 mg PO DAILY Furosemide [Lasix] 20 mg PO DAILY Fluticasone/Vilanterol [Breo Ellipta 200-25 Mcg Inhaler] 1 dose INH DAILY #0 Albuterol/Ipratropium [Duoneb] 1 unit AEROSOL Q4H PRN PRN Reason: Shortness Of Air/Wheezing azithromycin 250 mg tablet 250 mg PO QAM tab Referrals: Arian Garcias DO [Family Provider] - Time of Disposition: 04:32 - Seen By: physician
[2017-04-16] MEDS ORDERED: ALBUTEROL/IPRATROPIUM 2.5mg-0.5mg/3ml NEB IH ONE (03:41)
[2017-04-16] MEDS ORDERED: METHYLPREDNISOLONE SOD SUCC 125mg/2ml INJECTION IVP ONE (03:41)
[2017-04-16 05:21] VITALS: BMI 34.4
[2017-04-16] MEDS ORDERED: HYDROCODONE/APAP 5mg/325mg TABLET PO PRN (05:43)
[2017-04-16] MEDS ORDERED: MORPHINE SULFATE 4mg INJECTION IVP PRN (05:43)
[2017-04-16] MEDS ORDERED: DOCUSATE SODIUM 100 MG CAPSULE PO PRN (05:43)
[2017-04-16] MEDS ORDERED: ACETAMINOPHEN 650 MG SUPPOSITORY PR PRN (05:43)
[2017-04-16] MEDS ORDERED: ONDANSETRON 4 MG/2 ML INJECTION IVP PRN (05:43)
[2017-04-16] MEDS ORDERED: LEVOFLOXACIN PB 500 MG/100 ML BAG IV SCH (05:43)
[2017-04-16] MEDS ORDERED: NS FLUSH BAG 500ml IV PRN (05:48)
--- NOTE | 2017-04-16 06:28 | History & Physical Report ---
History of Present Illness Date: 04/16/17 Chief complaint: weakness HPI: This is a very pleasant 76 y/o male who has a history of bronchiectasis, CAD, left sided CVA who had been feeling himself recently. His will report an increased cough for the past 3 days that the patient minimizes. The patient woke up at 3am to go to the bathroom and had no strength in either leg. His asissted him to the floor and EMS arrived to help. The pateint reports that he has not had any fevers. He now will describe a productive cough x 3 days, increased shortness of breath. He chronically sleeps in a recliner because of his shoulder pain. He states that he has been able to walk freely without assitance of a walker though. In the ED a CXR shows copd changes without infiltrate. an ekg demonstrates sinus tachycardia without ischemic changes. a VBG does not demonstrate hypercapnic resp failure. Thepateint chronically uses oxygen 3 liters at night. 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 The patient's labs demonstrate mild dehydration. The patient has had his diuretic doubled recently due to increased edema (wears natan hoses chronically). The most concerning finding is a troponin of .11 The pateint adamently denies chest pain. There is a reported history of CAD but patient denies stents or surgical interventions. A detailed discussion with patient and his son (Hospitalist) and the decision is to admit locally, tx for copd exacerbation and bronchitis and finish the rule out. Review of Systems All systems PM: 10-point ROS was reviewed, no additional remarkable complaints except Review of systems: as noted in HPI. no fever, chillls or sweats, no neck or jaw pain, no heart palpitations, no abdomen pain, no nausea or vomiting, no change in bm, edema to legs is actually improved. 12 point ROS is otherwise negative except for outlined above. Past Medical History Patient Stated Medical History Chronic Obstructive Pulmonary Yes Disease (COPD) Other Respiratory Yes: bronchiectasis-lower left lobe Gastroesophageal Reflux Yes Disease Hiatal Hernia Yes Anemia Yes Other Infectious Yes: bronchiectasis Blood Transfusions Yes Clinic Medical History (Last Reviewed 03/30/17 @ 11:22 by LM Chapman) COPD (chronic obstructive pulmonary disease) (Chronic Medical) Ischemic cerebrovascular accident (CVA) (Chronic Medical) Anemia (Chronic Medical) Hepatitis C (Chronic Medical) Bronchiectasis (Resolved Medical) CVA (cerebral vascular accident) (Resolved Medical) GERD (gastroesophageal reflux disease) (Resolved Medical) GERD (gastroesophageal reflux disease) (Inactive Medical) Surgical History: 1961 lymph node biopsy of left shoulder/neck. 1998 hernia repair with mesh. 1998 radical prostatectomy (prostate cancer). 2007 hiatal hernia repair and repair of upside down stomach. 2013 bilateral cataracts and bags from upper and lower eyes removed Family History: Family History (Last Reviewed 03/30/17 @ 11:22 by Taylor Bridges Davey) Mother Brain cancer Kidney cancer, primary, with metastasis from kidney to other site Father Hypertension Congestive heart failure Family History Updates: reviewed and noted above - Social History Smoking status: Former smoker Substance use type: does not use Alcohol intake frequency: does not drink Housing: house Household members: spouse Current occupational status: retired Current residence: Apartment/Private Home Medications Home Medications Medication Instructions Recorded Confirmed Type Fluticasone/Vilanterol [Breo 1 dose INH DAILY #0 05/28/16 04/16/17 History Ellipta 200-25 Mcg Inhaler] azithromycin 250 mg tablet 250 mg PO QAM tab 01/27/17 04/16/17 History Acetaminophen [Acetaminophen Extra 1,000 mg PO DAILY 04/16/17 04/16/17 History Strength] Albuterol/Ipratropium [Duoneb] 1 unit AEROSOL Q4H PRN 04/16/17 04/16/17 History Cyanocobalamin (Vitamin B-12) 250 mcg SL DAILY 04/16/17 04/16/17 History [B-12] Folic Acid 400 mg PO DAILY 04/16/17 04/16/17 History Furosemide [Lasix] 20 mg PO DAILY 04/16/17 04/16/17 History Allergies Allergy/AdvReac Type Severity Reaction Status Date / Time bee venom protein (honey bee) Allergy Unknown Verified 04/16/17 02:50 iodine Allergy Unknown Verified 04/16/17 02:50 nitrofurantoin AdvReac Mild NAUSEA Verified 04/16/17 02:50 IODINE DYE Allergy Severe Anaphylactic Uncoded 04/16/17 02:50 Shock Exam Vital Signs: Temperature 98.6 F 04/16/17 02:36 Pulse Rate 123 H 04/16/17 04:30 Respiratory Rate 28 H 04/16/17 04:30 Blood Pressure 130/82 04/16/17 04:30 Pulse Oximetry 94 04/16/17 04:30 Telemetry Rhythm: Sinus Rhythm Height/Weight/BMI: Height 1.78 m Weight 108.7 kg Body Mass Index 34.4 - Constitutional Present: mild distress, well nourished, well developed, obese, cooperative - Routine HEENT Exam Head: Present: normocephalic, atraumatic Eye: Present: EOMI, conjunctivae pink - Routine Neck Exam Present: supple, full ROM - Routine Respiratory Exam Comments: there are insp wheezes left greater than right on exam - Detailed Respiratory Exam Present: wheezes, decreased breath sounds - Routine Cardiovascular Exam Present: RRR, no murmur - Routine Abdominal Exam Present: soft, normoactive bowel sounds, non distended - Routine Extremities Exam Comments: trace edema - Routine Skin Exam Present: intact - Routine Neurological Exam Present: alert, oriented X3, CN II-XII intact, moving all extremities, normal tone, normal speech - Routine Psychiatric Exam Present: normal affect, normal thought process Results - Labs CBC & Chem 7: 04/16/17 03:03 04/16/17 03:03 Labs: reviewed and only slight worsening of cr 1.4 from 1, elevated troponin appreicated - ECG Data Tracing #1 sinus tachycardia, no ischemic changes - Imaging and Cardiology Chest x-ray Additional comments: no acute infiltrate , chronic atelectasis, scaring right greater than left Assessment and Plan (1) COPD exacerbation Current visit: Yes Status: Acute (2) Weakness Current visit: Yes Status: Acute (3) Elevated troponin Current visit: Yes Status: Acute (4) Acute kidney injury Current visit: Yes Status: Acute (5) Bronchiectasis Current visit: Yes Status: Acute (6) GERD (gastroesophageal reflux disease) Current visit: No Status: Acute Assessment and Plan: 1. copd exacerbation acute POA: appreciate that the patient is wheezing no infiltrate on exam. no obvious failure on exam. (recent doubling of lasix) see below. vbg is reasuring for no acute hypercapnic failure. will continue steroids, duoneb albuterol, levaquin and reassess in next 24 hours. Not completely convinced this is the whole story yet 2. elevated troponin acute POA: cycle enzyems on tele. no chest pain, ekg non ischemic, hx of ? cardiac ds. see HPI. decision to keep local and complete rule out. 3. julia acute POA: increased diuresis. hold further diuresis. reluctant to use much fluids acutely with cardiac ds 4. weakness acute POA: this is a vague sx, no focal neuro deficits, previous cva. could be related to bronchitis. could be related to dehydration. the patient reports a signficant change from going to bed and waking up. If not improve with treatments provided, may need neuro eval DVT Prophylaxis: SCD's, Lovenox Resuscitation Status: Full Code - Time spent with patient Time with patient PN: 30 minutes - Physician Narrative Physician: Cadence Farmer MD Narrative: Date: 04/16/17 Time: 622 Hospital Course Summary Disclaimer: The visit summary below is not to be considered part of the above Progress Note.
--- NOTE | 2017-04-16 07:51 | XRay Report ---
Indication: Dyspnea PROCEDURE: XR chest 1V: Encounter: Initial Comparison: December 27, 2016 FINDINGS: Minimal basilar scarring. The lungs are otherwise clear. There is no new abnormal airspace opacity, pleural effusion or pneumothorax identified. The heart size, pulmonary vasculature and mediastinum are within normal limits. No significant skeletal abnormality is seen. IMPRESSION: No acute cardiopulmonary abnormality. .
[2017-04-16] MEDS ORDERED: METHYLPREDNISOLONE SOD SUCC 125mg/2ml INJECTION IVP SCH (09:00)
[2017-04-16] MEDS: CLOPIDOGREL 75 MG TABLET PO SCH (10:10)
[2017-04-16] MEDS ORDERED: FLUTICASONE NASAL SPRAY 50mcg EA NOSTRIL PRN (14:30)
--- NOTE | 2017-04-16 14:50 | History & Physical Report ---
History of Present Illness Date: 04/16/17 HPI: Overnight HPI This is a very pleasant 76 y/o male who has a history of bronchiectasis, CAD, left sided CVA who had been feeling himself recently. His will report an increased cough for the past 3 days that the patient minimizes. The patient woke up at 3am to go to the bathroom and had no strength in either leg. His asissted him to the floor and EMS arrived to help. The pateint reports that he has not had any fevers. He now will describe a productive cough x 3 days, increased shortness of breath. He chronically sleeps in a recliner because of his shoulder pain. He states that he has been able to walk freely without assitance of a walker though. In the ED a CXR shows copd changes without infiltrate. an ekg demonstrates sinus tachycardia without ischemic changes. a VBG does not demonstrate hypercapnic resp failure. Thepateint chronically uses oxygen 3 liters at night. 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 The patient's labs demonstrate mild dehydration. The patient has had his diuretic doubled recently due to increased edema (wears natan hoses chronically). The most concerning finding is a troponin of .11 The pateint adamently denies chest pain. There is a reported history of CAD but patient denies stents or surgical interventions. A detailed discussion with patient and his son (Hospitalist) and the decision is to admit locally, tx for copd exacerbation and bronchitis and finish the rule out. Follow up HPI presented to the ED d/t weakness. Reports he got up to go the bathroom but felt really weak so basically sat down on the floor. Denies a fall , denies any trauma. Denies syncope or lightheadedness. Denies any focal weakness or numbness. Reports generalized weakness that is more chronic and has been going on for a couple of months. Reports it may have started when he started lipitor but now he is not on lipitor for at least one month. Pt denies any other sx's. Denies any cough or URI type sx's. Denies any f/c, cp, or change in sob. Pt reports he has a cough and sob at baseline which has not changed recently. Pt had his lasix increased recently by pcp d/t LE swelling. Pt denies any pain in LE's and that his swelling has been present for a while. Pt does snore at night and does report fatigue throughout the day. Please see previous H&P for complete information on PMH, ROS, FH and SH. Past Medical History Patient Stated Medical History Chronic Obstructive Pulmonary Yes Disease (COPD) Other Respiratory Yes: bronchiectasis-lower left lobe Gastroesophageal Reflux Yes Disease Hiatal Hernia Yes Anemia Yes Other Infectious Yes: bronchiectasis Blood Transfusions Yes Clinic Medical History (Last Reviewed 03/30/17 @ 11:22 by Taylor Bridges Davey) COPD (chronic obstructive pulmonary disease) (Chronic Medical) Ischemic cerebrovascular accident (CVA) (Chronic Medical) Anemia (Chronic Medical) Hepatitis C (Chronic Medical) Bronchiectasis (Resolved Medical) CVA (cerebral vascular accident) (Resolved Medical) GERD (gastroesophageal reflux disease) (Resolved Medical) GERD (gastroesophageal reflux disease) (Inactive Medical) Surgical History: 1961 lymph node biopsy of left shoulder/neck. 1998 hernia repair with mesh. 1998 radical prostatectomy (prostate cancer). 2007 hiatal hernia repair and repair of upside down stomach. 2013 bilateral cataracts and bags from upper and lower eyes removed Family History: Family History (Last Reviewed 03/30/17 @ 11:22 by LM Chapman) Mother Brain cancer Kidney cancer, primary, with metastasis from kidney to other site Father Hypertension Congestive heart failure Family History Updates: Reviewed - Social History Smoking status: Former smoker Current residence: Apartment/Private Home Medications Home Medications Medication Instructions Recorded Confirmed Type Fluticasone/Vilanterol [Breo 1 dose INH DAILY #0 05/28/16 04/16/17 History Ellipta 200-25 Mcg Inhaler] azithromycin 250 mg tablet 250 mg PO QAM tab 01/27/17 04/16/17 History Acetaminophen [Acetaminophen Extra 1,000 mg PO DAILY 04/16/17 04/16/17 History Strength] Albuterol/Ipratropium [Duoneb] 1 unit AEROSOL Q4H PRN 04/16/17 04/16/17 History Cyanocobalamin (Vitamin B-12) 250 mcg SL DAILY 04/16/17 04/16/17 History [B-12] Folic Acid 400 mg PO DAILY 04/16/17 04/16/17 History Furosemide [Lasix] 20 mg PO DAILY 04/16/17 04/16/17 History Allergies Allergy/AdvReac Type Severity Reaction Status Date / Time bee venom protein (honey bee) Allergy Unknown Verified 04/16/17 02:50 iodine Allergy Unknown Verified 04/16/17 02:50 nitrofurantoin AdvReac Mild NAUSEA Verified 04/16/17 02:50 IODINE DYE Allergy Severe Anaphylactic Uncoded 04/16/17 02:50 Shock Exam Vital Signs: Temperature 97.9 F 04/16/17 08:00 Pulse Rate 100 04/16/17 08:00 Respiratory Rate 22 04/16/17 08:00 Blood Pressure 137/81 04/16/17 08:00 Pulse Oximetry 94 04/16/17 08:00 Height/Weight/BMI: Height 5 ft 10 in Weight 108.5 kg Body Mass Index 34.4 - Constitutional Present: no acute distress - Routine HEENT Exam Head: Present: normocephalic, atraumatic Eye: Present: EOMI, PERRL ENT: Present: mucous membranes moist - Routine Neck Exam Present: supple, full ROM - Routine Respiratory Exam Present: CTA bilaterally. Absent: wheezes, crackles - Routine Cardiovascular Exam Present: RRR, no murmur - Routine Abdominal Exam Present: soft, non distended, non tender - Routine Extremities Exam Present: edema. Absent: cyanosis, clubbing - Routine Skin Exam Present: intact, dry. Absent: erythema - Routine Neurological Exam Present: alert, oriented X3. Absent: sensory deficit, motor deficit Results - Labs CBC & Chem 7: 04/16/17 03:03 04/16/17 03:03 Assessment and Plan (1) GERD (gastroesophageal reflux disease) Current visit: No Status: Acute (2) COPD exacerbation Current visit: Yes Status: Acute (3) Weakness Current visit: Yes Status: Acute (4) Elevated troponin Current visit: Yes Status: Acute (5) Acute kidney injury Current visit: Yes Status: Acute (6) Bronchiectasis Current visit: Yes Status: Acute Assessment and Plan: Weakness -Likely from dehydration and sleep apnea -Will hold pt's lasix, order pt/ot -No focal weakness, stroke not suspected LE Edema -Likely from NINO -Lasix will likely not be effective -Pt needs sleep eval COPD -Seems stable, I do not suspect exacerbation per the hx pt gave -Will home inhaler and will stop abx and steroids -CXR unremarkable for acute pathology Ppx -Lovenox - Physician Narrative Narrative: Date: 04/16/17 Time: 1444 Hospital Course Summary Disclaimer: The visit summary below is not to be considered part of the above Progress Note. Hospital Course: 04/16/17 14:58 Pt initially admitted for copd exacerbation but this am pt not giving a hx consistent with that. Pt's weakness and LE edema is likely from NINO and his increased weakness is likely from dehydration from increase in lasix. Will do exercise oximetery and PT/OT eval. D/c abx and steroids for copd exacerbation for now.
[2017-04-16] MEDS ORDERED: ALBUTEROL/IPRATROPIUM 2.5mg-0.5mg/3ml NEB AEROSOL PRN (14:57)
[2017-04-17] MEDS: ENOXAPARIN 40 MG/0.4 ML INJECTION SQ SCH (09:07)
[2017-04-17] MEDS: CLOPIDOGREL 75 MG TABLET PO SCH (09:07)
[2017-04-17] MEDS: FOLIC ACID 1 MG TABLET PO SCH (09:07)
--- NOTE | 2017-04-17 16:48 | Progress Note ---
- Date 04/17/17 Subjective: Mr. Mojica reports that he feels weaker than normal and that weakness has been getting worse slowly for several years. He is able to ambulate with assistance today and denies sensation that he will fall to the ground as he did prior to admission. His appetite is good. He denies dyspnea at rest but reports mild exertional dyspnea which is baseline for him. He denied chest pain, outpatient dictations, generalized pain, or nausea. He reports that when he started CPAP years ago he felt much better but later felt like he couldn't breathe through the equipment and discontinue using it. He denies lightheadedness when he stands reporting only that he feels weak. Nursing reports patient has been ambulating in the hallway with and without a walker. Oxygen saturations well-maintained on room air while awake. Objective Vital signs: Temperature 97.9 F 04/17/17 15:30 Pulse Rate 103 H 04/17/17 16:00 Respiratory Rate 24 04/17/17 15:30 Blood Pressure 136/89 04/17/17 15:30 Pulse Oximetry 93 04/17/17 15:30 I/O 670/915 EXAM General-NAD, alert HEENT-conjunctiva clear, conjugate gaze, neck supple Lungs-respirations nonlabored, good airflow, breath sounds clear Cardiac-regular rhythm, S1 and S2, low-grade tachycardia Abd-obese, soft, nontender, bowel sounds present Ext-+2 bilateral pitting peripheral edema Neuro-MAEW Psych-calm, cooperative, euthymic - Rhythm: Sinus Tachycardia (rate typically about 110 by review of telemetry strips) Height/Weight/BMI: Height 1.78 m Weight 108.5 kg Body Mass Index 34.4 Results - Labs CBC & Chem 7: 04/16/17 03:03 04/16/17 03:03 - Imaging and Cardiology Chest x-ray Status: image reviewed by me (DELORES) Assessment and Plan (1) Weakness Current visit: Yes Status: Acute (2) Acute kidney injury Current visit: Yes Status: Acute Assessment and Plan: Weakness -Likely from dehydration and sleep apnea -Will hold pt's lasix, seen by PT/OT earlier today--patient resistant to use of walker per nursing. -No focal weakness, stroke not suspected LE Edema -Likely from NINO -Lasix will likely not be effective COPD/bronchiectasis -Stable, symptoms not consistent with acute exacerbation. -Home medications -CXR unremarkable for acute pathology Obstructive sleep apnea -Nocturnal oximetry overnight on 3 L supplemental oxygen as utilized at home -Will likely need outpatient sleep study Acute kidney injury -Admission creatinine 1.4 with recent baseline 1.1. -Lasix on hold; reassess renal function in a.m. Increased troponin -Peak troponin 0.111 with subsequent drop; EKG without acute changes. -Nondiagnostic and consistent with acute kidney injury History CVA, GERD Ppx -Lovenox Discussed with nursing and case management. Nursing provide supplemental history. DVT Prophylaxis: Lovenox Resuscitation Status: Full Code - Physician Narrative Narrative: Date: 04/17/17 Time: 164 Hospital Course Summary Disclaimer: The visit summary below is not to be considered part of the above Progress Note. Hospital Course: 04/16/17 14:58 Pt initially admitted for copd exacerbation but this am pt not giving a hx consistent with that. Pt's weakness and LE edema is likely from NINO and his increased weakness is likely from dehydration from increase in lasix. Will do exercise oximetery and PT/OT eval. D/c abx and steroids for copd exacerbation for now. 04/17/17 17:08 Clinically improving-ambulating with assistance, walker recommended by PT but patient reluctant to use. Patient reports he remains weaker than usual but feels better than on admission. No acute respiratory symptoms; diuretics remain on hold-reassess renal function in the morning. Overnight oximetry to be obtained on 3 L supplemental oxygen tonight to determine adequacy of oxygenation without CPAP.
[2017-04-17] MEDS: SALINE FLUSH 10ml SYRINGE IVF PRN (20:39)
[2017-04-17] MEDS: RANITIDINE 150 MG TABLET PO SCH (20:39)
[2017-04-17] MEDS ORDERED: RANITIDINE 300 MG TABLET PO SCH (21:00)
[2017-04-18 08:03] VITALS: RESP 20
[2017-04-18] MEDS: ENOXAPARIN 40 MG/0.4 ML INJECTION SQ SCH (08:43)
[2017-04-18] MEDS: ACETAMINOPHEN 500 MG TABLET PO SCH (08:43)
[2017-04-18] MEDS: FOLIC ACID 1 MG TABLET PO SCH (08:43)
[2017-04-18] MEDS: CLOPIDOGREL 75 MG TABLET PO SCH (08:43)
--- NOTE | 2017-04-18 16:40 | Progress Note ---
- Date 04/18/17 Subjective: Mr. Mojica was seen several times during the day. Nursing reported increased confusion overnight and poor sleep. Patient initially told me that he slept well but subsequently advised me that he was awake most of the night and that he thought he was at home. At times he thought it was in the evening not middle of the night when nursing approached him during the night. He describes persistent cough with minimal sputum production but denied dyspnea. He's had no chest pain or palpitations and denies nausea or abdominal discomfort. He is voiding without difficulty and has not had fever. This morning it again required two-person assistance to get him up and out of bed but late morning he got out of bed by himself and ambulated with a walker without difficulty. His reports that he typically sleeps in a recliner and that he naps much of the day. Objective Vital signs: Temperature 98.3 F 04/18/17 15:42 Pulse Rate 109 H 04/18/17 16:00 Respiratory Rate 20 04/18/17 15:42 Blood Pressure 138/82 04/18/17 15:42 Pulse Oximetry 91 04/18/17 15:42 I's/O 1125/1950 Weight is up approximately 4 kg from admission and 9 kg from December 2016 EXAM General-NAD, slightly confused, HEENT-conjugate gaze, conjunctiva clear Lungs-respirations nonlabored, good airflow, anterior breath sounds clear. Cardiac-regular rhythm with low-grade tachycardia, S1-S2 Abd-obese, soft, nontender, bowel sounds present Ext-+1 edema-improved from yesterday; right toes were erythematous and warm when I initially evaluated him but on repeat exam there was no discrepancy between the feet-chronic flaking/cracking of the feet and onychomycosis present. 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, raises each leg off the bed and hold them up against gentle pressure, symmetric dorsiflexion/ plantarflexion Psych-cooperative, oriented 3 - Rhythm: Sinus Tachycardia (rate typically about 110 by review of telemetry strips) Height/Weight/BMI: Height 1.78 m Weight 112.6 kg Body Mass Index 34.4 Results - Labs CBC & Chem 7: 04/18/17 04:11 12/30/17 04:11 Labs: S66, B4, L12, M18 Phosphorus 2.5, magnesium 2.1 - Imaging and Cardiology Chest x-ray Status: image reviewed by me (DELORES) Assessment and Plan (1) Weakness Current visit: Yes Status: Acute (2) Acute kidney injury Current visit: Yes Status: Acute Assessment and Plan: Impression: Weakness LE Edema Confusion-variable COPD/bronchiectasis Obstructive sleep apnea Acute kidney injury Increased troponin History CVA, GERD Plan: Patient is less alert and required more assistance this morning that he did yesterday although later in the day was able to ambulate and get in and out of bed independently (and still later had difficulty again). Significant variation in functional abilities evident and I am concerned about his ability to function safely at home at this point. Poor sleep last night may be responsible for impaired functional status today although that remains speculative. Has ambulated twice with walker, after standing patient is able to ambulate without difficulty. This afternoon the patient seemed confused about how to stand up when seated on the edge of the bed-similar to confusion his describes prior to hospitalization. No focal weakness evident on examination again today as was true on admission. Mrs. Mojica describes increased cough from baseline-sputum culture and respiratory viral panel to be obtained. Chest x-ray without focal pathology. Resume Lasix 20 mg/d which was held for acute kidney injury and weakness on admission. Cr 1.4-1.2; baseline 1.1. Overnight oximetry demonstrated intermittent episodes of desaturation although total time with saturation < 89% was reported at only 9 minutes there was significant artifact during the study and patient was awake much of the night limiting adequacy of this testing. Continue to believe patient would benefit from repeat sleep study and resumption of CPAP for obstructive sleep apnea. Trial CPAP here tonight. No cardiac symptoms, telemetry with some low-grade sinus tachycardia- reports heart rate is typically normal. Supplemental history provided by Mrs. Mojica and nursing. Discussed with respiratory therapy. DVT Prophylaxis: Lovenox Resuscitation Status: Full Code - Physician Narrative Narrative: Date: 04/18/17 Time: 1633 Hospital Course Summary Disclaimer: The visit summary below is not to be considered part of the above Progress Note. Hospital Course: 04/16/17 14:58 Pt initially admitted for copd exacerbation but this am pt not giving a hx consistent with that. Pt's weakness and LE edema is likely from NINO and his increased weakness is likely from dehydration from increase in lasix. Will do exercise oximetery and PT/OT eval. D/c abx and steroids for copd exacerbation for now. 04/17/17 17:08 Clinically improving-ambulating with assistance, walker recommended by PT but patient reluctant to use. Patient reports he remains weaker than usual but feels better than on admission. No acute respiratory symptoms; diuretics remain on hold-reassess renal function in the morning. Overnight oximetry to be obtained on 3 L supplemental oxygen tonight to determine adequacy of oxygenation without CPAP. 04/18/17 Patient is less alert and required more assistance this morning that he did yesterday although later in the day was able to ambulate and get in and out of bed independently. Significant variation in functional abilities evident and I am concerned about his ability to function safely at home at this point. Poor sleep last night may be responsible for impaired functional status today although that remains speculative. This afternoon the patient seemed confused about how to stand up when seated on the edge of the bed-similar to confusion his describes prior to hospitalization. No focal weakness evident on examination again today as was true on admission. Mrs. Mojica describes increased cough from baseline-sputum culture and respiratory viral panel to be obtained. Chest x-ray without focal pathology. Resume Lasix 20 mg/d which was held for acute kidney injury and weakness on admission. Cr 1.4-1.2; baseline 1.1. Overnight oximetry demonstrated intermittent episodes of desaturation although total time with saturation < 89% was reported at only 9 minutes there was significant artifact during the study and patient was awake much of the night limiting adequacy of this testing.
[2017-04-18] MEDS: RANITIDINE 150 MG TABLET PO SCH (21:47)
[2017-04-18] MEDS: SALINE FLUSH 10ml SYRINGE IVF PRN (21:49)
[2017-04-19 07:45] VITALS: BP 140/84; TEMP 97.7; O2SAT 94
[2017-04-19] MEDS: ENOXAPARIN 40 MG/0.4 ML INJECTION SQ SCH (08:38)
[2017-04-19] MEDS: CLOPIDOGREL 75 MG TABLET PO SCH (08:38)
[2017-04-19] MEDS: ACETAMINOPHEN 500 MG TABLET PO SCH (08:38)
[2017-04-19] MEDS: FOLIC ACID 1 MG TABLET PO SCH (08:39)
[2017-04-19] MEDS ORDERED: FUROSEMIDE 20 MG TABLET PO SCH (09:00)
--- NOTE | 2017-04-19 10:42 | XRay Report ---
INDICATION: hypoxia, cough PROCEDURE: CHEST 2-VIEWS UPRIGHT (PA & LAT) Encounter: Initial COMPARISON: 04/16/2017 FINDINGS: New linear opacity in both lower lobes. No lobar consolidation, gross pleural effusion or pneumothorax. Heart size, pulmonary vascularity and mediastinal contours are stable with a tortuous ectatic thoracic aorta. Degenerative change in the shoulders. Impression: New linear airspace opacity in both lower lobes could represent atelectasis or pneumonia .
[2017-04-19 13:52] VITALS: PULSE 95
--- NOTE | 2017-04-19 17:10 | Discharge Summary ---
Discharge Information Date of admission: 04/16/17 04:51 Anticipated date of discharge: 04/19/17 Attending Physician: Cadence Farmer MD Primary care physician: Arian Garcias DO Consults: - Discharge Diagnosis (1) Weakness Status: Acute (2) Influenza A Status: Acute (3) Acute kidney injury Status: Acute Weakness Influenza A Acute kidney injury LE Edema Confusion-variable COPD/bronchiectasis Obstructive sleep apnea - Procedures Procedures: Overnight oximetry on 04/17-04/18 on 3 L supplemental oxygen with approximately 9 minutes oxygen saturation reported < 89% but over one hour of interference described during the tracing. Additionally the patient reported that he got little sleep and was up/ambulating frequently during the night. - Laboratory Labs: On admission white count 10.0, hemoglobin 15.8 with MCV 100.2. Electrolytes were notable only for bicarbonate of 31. AST 70. Initial troponin was 0.11 with subsequent troponins declining. Lactic acid 1.8. Urinalysis revealed concentrated urine with specific gravity > 1.03 and trace ketones but no WBCs 04/19/17 04:09 04/19/17 04:09 - Microbiology 04/18/17 17:22 Sputum, Expectorated Gram Stain -few neutrophils, moderate gram-positive cocci in chains, few gram-positive cocci in pairs. 04/18/17 17:22 Sputum, Expectorated Sputum Culture - Preliminary Coag negative Staphylococcus-heavy growth 04/18/17 respiratory viral panel positive for influenza A-H3 Blood cultures 2 drawn on admission were negative at discharge - Radiology Radiology: Chest x-ray on admission demonstrated no acute cardiopulmonary abnormality with repeat film on 04/18 demonstrating minor linear atelectasis bilaterally. History of Present Illness HPI: Overnight HPI This is a very pleasant 76 y/o male who has a history of bronchiectasis, CAD, left sided CVA who had been feeling himself recently. His will report an increased cough for the past 3 days that the patient minimizes. The patient woke up at 3am to go to the bathroom and had no strength in either leg. His assisted him to the floor and EMS arrived to help. The pateint reports that he has not had any fevers. He now will describe a productive cough x 3 days, increased shortness of breath. He chronically sleeps in a recliner because of his shoulder pain. He states that he has been able to walk freely without assitance of a walker though. In the ED a CXR shows copd changes without infiltrate. an ekg demonstrates sinus tachycardia without ischemic changes. a VBG does not demonstrate hypercapnic resp failure. The patient chronically uses oxygen 3 liters at night. 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 The patient's labs demonstrate mild dehydration. The patient has had his diuretic doubled recently due to increased edema (wears natan hoses chronically). The most concerning finding is a troponin of .11 The patient adamantly denies chest pain. There is a reported history of CAD but patient denies stents or surgical interventions. A detailed discussion with patient and his son (Hospitalist) and the decision is to admit locally, tx for copd exacerbation and bronchitis and finish the rule out. Follow up HPI presented to the ED d/t weakness. Reports he got up to go the bathroom but felt really weak so basically sat down on the floor. Denies a fall , denies any trauma. Denies syncope or lightheadedness. Denies any focal weakness or numbness. Reports generalized weakness that is more chronic and has been going on for a couple of months. Reports it may have started when he started lipitor but now he is not on lipitor for at least one month. Pt denies any other sx's. Denies any cough or URI type sx's. Denies any f/c, cp, or change in sob. Pt reports he has a cough and sob at baseline which has not changed recently. Pt had his lasix increased recently by pcp d/t LE swelling. Pt denies any pain in LE's and that his swelling has been present for a while. Pt does snore at night and does report fatigue throughout the day. Hospital Course This is a general summary of the patient's hospital course. For more details refer to the complete medical record. Hospital course: 04/16/17 14:58 Pt initially admitted for copd exacerbation but this am pt not giving a hx consistent with that. Pt's weakness and LE edema is likely from NINO and his increased weakness is likely from dehydration from increase in lasix. Will do exercise oximetery and PT/OT eval. D/c abx and steroids for copd exacerbation for now. 04/17/17 17:08 Clinically improving-ambulating with assistance, walker recommended by PT but patient reluctant to use. Patient reports he remains weaker than usual but feels better than on admission. No acute respiratory symptoms; diuretics remain on hold-reassess renal function in the morning. Overnight oximetry to be obtained on 3 L supplemental oxygen tonight to determine adequacy of oxygenation without CPAP. Hospital course Mr. Mojica was admitted with weakness and possible COPD exacerbation although he really complained only of weakness and inability to get out of the chair independently and of lower extremity edema. His correlated symptoms with increased furosemide dose recently although notes that several medication changes have been made over the past month and that weakness has been progressive for some time. He was thought to be dehydrated on admission based on concentrated urine, acute kidney injury, and hemoglobin which was slightly above baseline. Diuretics were held initially and subsequently resumed with dose of furosemide 20 mg daily prior to discharge. Elevation of his legs/ support hose was recommended in addition to reassessment of obstructive sleep apnea as nocturnal hypoxia may be significant factor in chronic lower extremity edema. Overnight oximetry was attempted to determine if patient desaturates with nasal cannula oxygen however the patient did not sleep well in the hospital and there was significant artifact in the study precluding useful information being obtained; intermittent hypoxia was demonstrated however and formal sleep study should probably be entertained if the patient is willing to do so. Patient wore oxygen during the day intermittently due to complaints of nasal congestion and breathing better with oxygen on although oxygen saturation on room air on the date of discharge was 91% and prior to that oxygen saturations on room air while awake had been adequate at rest and with ambulation. Respiratory viral panel was positive for influenza A on 04/18 at which time Tamiflu was initiated. I suspect viral infection contributes to preceding weakness in addition to multiple chronic problems. Nursing reported minor confusion at times during the hospitalization-primarily at night and associated with sleep deprivation. During daytime hours the patient was appropriately oriented and responsive; his did not identify concern was confusion at discharge. Physical therapy recommended use of a walker when ambulating and the patient was relatively independent after standing from seated position but did require standby assistance or one-person assistance to stand from a chair. On the date of discharge he was able to get up from the bedside recliner independently after rocking back and forth several times. On 04/19 the patient complained of nasal congestion and dry mouth with CPAP trial the prior night. Otherwise he has minor cough with some sputum production but did not feel it was significantly in excess of baseline. He was wearing oxygen when seen this morning because he felt he wasn't getting enough air without the oxygen on. He denied lightheadedness and nursing confirmed that he was ambulating without difficulty, generally not using the walker. Patient was alert and responded to questions appropriately. Respirations were nonlabored although breath sounds are somewhat diminished throughout. Breath sounds are clear. Abdomen is soft and nontender, +1 edema bilateral lower extremities. Patient was felt stable for discharge after Mrs. Mojica visited with him and ambulated with him to assess that his strength was adequate to safely return home. Patient and are aware that outpatient physical therapy can be pursued after he recovers from influenza if additional strengthening efforts are desired. Discharge medications were reviewed with Mrs. Mojica. Time spent with patient: discharge greater than 30 minutes Discharge Plan - Med Rec/Dispo Referrals/Follow Up: Arian Garcias DO [Family Provider] - 1 Week Cel[facility] Instructions: Influenza (GEN), COPD (Chronic Obstructive Pulmonary Disease) (GEN) Prescriptions: New Oseltamivir Cap [Tamiflu] 75 mg PO BID #8 cap Continue Clopidogrel [Plavix] 75 mg PO DAILY #30 tab Fluticasone Nasal [place] [Flonase] 1 spray EA NOSTRIL BID PRN 30 Days #1 bottle PRN Reason: Congestion raNITIdine HCl [Ranitidine HCl] 300 mg PO HS tab Folic Acid 400 mg PO DAILY Cyanocobalamin (Vitamin B-12) [B-12] 250 mcg SL DAILY Acetaminophen [Acetaminophen Extra Strength] 1,000 mg PO DAILY Furosemide [Lasix] 20 mg PO DAILY Fluticasone/Vilanterol [Breo Ellipta 200-25 Mcg Inhaler] 1 dose INH DAILY #0 Albuterol/Ipratropium [Duoneb] 1 unit AEROSOL Q4H PRN PRN Reason: Shortness Of Air/Wheezing azithromycin 250 mg tablet 250 mg PO QAM tab - Disposition 01 Discharged Home, Self-Care
== END 2017-04-19 16:10 | disposition home health service, planned readmission (86) | DRG 191 ==
LOC: ED 02:36 → SUATTDRO 04:51 → MED 04:51
PROVIDERS: ADMIT Emergency Medicine; ATTEND Internal Medicine